=== PATIENT | male | born 1955 | race Caucasian/White ===

== ENCOUNTER 2021-12-14 16:18 | Outpatient (REF) | payer BC, SELFPAY ==
--- NOTE | ~2021-12-14 | XR_ITS ---
EXAMINATION: XR CHEST CLINICAL INFORMATION: R05.9 - Cough, unspecified COMPARISON: Chest radiographs 03/14/2018, 06/29/2009 TECHNIQUE: 2 views of the chest were obtained. FINDINGS: The lungs are clear and there is no airspace consolidation or groundglass opacity or effusion. There is old small calcified granuloma overlying mid right upper zone similar to prior studies. The heart is normal in size. The vascularity is normal. The costophrenic sulci are clear. The hilar and mediastinal contours and visualized bony structures are unremarkable. XR/XR chest 2V IMPRESSION: Unremarkable examination.
[2021-12-14 17:34] LABS: Hematocrit 43.1 % (42.0-52.0); Hemoglobin 14.9 g/dl (14.0-18.0); Mean Corpuscular HGB Conc 34.6 g/dl (31.0-36.0); Mean Corpuscular Hemoglobin 32.9 pg (27.0-33.0); Mean Corpuscular Volume 95.1 fL (80.0-98.0); Mean Platelet Volume 9.2 fL (9.4-12.4); Platelet Count 221 X10*3/uL (160-400); Red Blood Count 4.53 X10*6/uL (4.60-5.80); Red Cell Distribution Width 12.2 % (11.0-16.0); White Blood Count 6.4 X10*3/uL (4.8-10.8)
[2021-12-14 17:52] LABS: Alanine Aminotransferase 72 U/L (0-40); Albumin Level 4.4 g/dL (3.5-5.0); Alkaline Phosphatase 43 U/L (39-117); Anion Gap 12 (12-20); Aspartate Amino Transferase 48 U/L (5-37); Bilirubin Total 1.3 mg/dL (0.0-1.0); Blood Urea Nitrogen 14 mg/dL (9-16); Calcium 9.4 mg/dL (8.4-10.2); Carbon Dioxide 28 mmol/L (22-29); Chloride 103 mmol/L (96-108); Estimated Glomerular Filt Rate > 60; Glucose Random 88 mg/dL (60-115); Potassium 4.2 mmol/L (3.3-5.1); Sodium 139 mmol/L (135-145); Total Protein 7.4 g/dL (6.5-8.0)
[2021-12-14 18:13] LABS: TSH reflex Free T4 2.34 uIU/mL (0.32-4.0)
== END 2021-12-14 16:19 | disposition home or self-care (01) ==
LOC: HO.XRAY 16:18
PROVIDERS: PCP Internal Medicine; Visit Provider Nurse Practitioner Family
DX: Z13.29 Encounter for screening for other suspected endocrine disorder (principal); R05.9 Cough, unspecified
CPT/HCPCS: 36415; 71046; 80053; 84443; 85027

== ENCOUNTER 2022-02-05 07:42 | Outpatient (REF) | payer BC, SELFPAY ==
--- NOTE | ~2022-02-05 | US_ITS ---
EXAMINATION: US ABDOMEN COMPLETE CLINICAL INFORMATION: Elevated LFTs. COMPARISON: None. TECHNIQUE: Real-time imaging of the abdominal viscera. FINDINGS: PANCREAS: Visualized body and the head of the pancreas is homogeneous. The talus not well visualized. ABDOMINAL AORTA: The proximal, mid, and distal segments are normal in caliber. INFERIOR VENA CAVA: IVC is not seen. LIVER: The liver is enlarged measuring 17.7 cm in length. The liver contour is normal. There is diffuse increased liver echogenicity. No focal lesion seen. There is no intrahepatic biliary duct dilatation seen. GALLBLADDER: The gallbladder has folds, likely simulating small polyps. The gallbladder is physiologically distended without evidence of stones, sludge, wall thickening or pericholecystic fluid. COMMON BILE DUCT: Normal in caliber measuring 0.5 cm in diameter. RIGHT KIDNEY: Normal. No hydronephrosis. No renal calculi or focal parenchymal lesions. The kidney measures 12.0 cm in maximum dimension. LEFT KIDNEY: Normal. No hydronephrosis. No renal calculi or focal parenchymal lesions. The kidney measures 12.9 cm in maximum dimension. SPLEEN: The spleen is enlarged. The spleen measures 14.6 cm in maximum dimension. FREE FLUID: None. US/US abdomen complete IMPRESSION: Mild hepatomegaly with hepatic steatosis. No focal lesion. Numerous gallbladder folds simulating polyps. Mild splenomegaly.
== END 2022-02-05 07:43 | disposition home or self-care (01) ==
LOC: HO.US 07:42
PROVIDERS: Visit Provider Nurse Practitioner Family
DX: R79.89 Other specified abnormal findings of blood chemistry (principal)
CPT/HCPCS: 76700

== ENCOUNTER 2022-02-06 15:54 | Outpatient (REF) | payer BC, SELFPAY ==
--- NOTE | 2022-02-06 17:37 | PFT_ITS ---
FLOWS: FEV1 85% of predicted at 3.30 L. FVC 81% of predicted at 4.25 L. FEV1 to FVC ratio of 0.78. No bronchodilator response. LUNG VOLUMES: Total lung capacity 88% of predicted at 6.93 L. Residual volume 99% of predicted at 2.62 L. Slow vital capacity 82% of predicted at 4.30 L. Expiratory reserve volume 27% of predicted at 0.43 L. Diffusion capacity is mildly decreased, diffusion capacity corrects to normal after adjustment for alveolar ventilation. IMPRESSION: No obstructive or restrictive ventilatory defect. No bronchodilator response. Decreased expiratory reserve volume suggests extrathoracic restriction, likely secondary to abdominal obesity. Prashanth Freeman MD AP/MODL / [id number]
== END 2022-02-06 15:55 | disposition home or self-care (01) ==
LOC: HO.RESP 15:54
PROVIDERS: PCP Internal Medicine; Visit Provider Nurse Practitioner Family
DX: R05.9 Cough, unspecified (principal); R06.02 Shortness of breath
CPT/HCPCS: 94060; 94727; 94729

== ENCOUNTER → 2022-03-02 09:22 | Outpatient (REF) | payer BC, SELFPAY ==
--- NOTE | 2022-03-02 09:26 | CA_ITS ---
Transthoracic Echocardiogram Patient (Last, First, Middle): Jah Irwin P Gender: Male Date of : 1955 Age: 66 Procedure Date: 03/02/2022 Procedure Type: Transthoracic Echocardiogram Location: OP Height: 187.96 cm Weight: 111.13 kg BSA: 2.37 m2 Heart Rate: bpm BP: 125 / 72 mmHg Treating Plant Supervisor: VH/TO Referring MD: Addie STALLWORTH [place] Tender: Steve Mullen MD Symptoms: R05.9 - Cough, unspecified Study Quality: Fair/Contrast ECG Rhythm: Sinus Conclusions: - 1. Normal LV systolic function with grade 1 diastolic dysfunction with possible regional wall motion abnormality in the RCA territory 2. Trivial aortic regurgitation 3. Mildly dilated ascending aorta at 4 cm 4. Normal RV systolic pressure 5. No gross pericardial effusion Findings Procedure Information Contrast agent, definity, is being given per protocol without apparent complications. Left Ventricle The visually estimated ejection fraction is between 60-65%. Spectral Doppler is indicative of an impaired relaxation filling pattern. E/E prime ratio is <8, consistent with normal filling pressures. Evidence suggests grade I (mild) diastolic dysfunction. Wall Motion Rest Echo Findings The inferoseptal wall, the basal inferior, and mid anteroseptal segments are hypokinetic. All other scored wall segments showed normal motion. Right Ventricle Normal right ventricular cavity size and systolic function. Atria The left atrium is likely dilated. There is lipomatous hypertrophy of the interatrial septum. There is no evidence of interatrial shunt. The right atrium is normal in size. Aortic Valve There is mild calcification of the aortic valve. There is no aortic valve stenosis. There is trace (trivial) aortic valve regurgitation. Mitral Valve There is mild anterior and posterior mitral leaflet thickening. There is trace mitral valve regurgitation. There is no mitral valve stenosis. Pulmonic Valve The pulmonic valve was not well visualized. Tricuspid Valve Likely normal tricuspid valve structure and function. There is trace tricuspid valve regurgitation. The right ventricular systolic pressure is normal. The right ventricular systolic pressure is 13 mmHg. Normal right atrial pressure. There is no evidence of pulmonary hypertension. Great Vessels The pulmonary artery was not well visualized. There is mild dilatation of the ascending aorta measuring 4.00 cm. Small plaque is seen in the ascending aorta. Venous The inferior vena cava is normal in size and collapses greater than 50% with inspiration. Pericardium/Pleural There is no evidence of pericardial effusion. Prior Study Comparison No prior study available for comparison. Measurements 2D Linear Measurements IVSd: 1.16 0.6-0.9/0.6-1.0 cm LVIDd: 5.58 3.9-5.3/4.2-5.9 cm LVIDd Index: 2.35 2.4-3.2/2.2-3.1 cm/m2 LVIDs: 3.86 2.0-3.6 cm LVPWd: 1.09 0.7-1.1 cm LA Diam: 3.90 2.7-3.8/3.0-4.0 cm LAIDs Index: 1.65 1.5-2.3 cm/m2 LV Mass: 318.56 67-162/88-224 g LV Mass Index: 134.41 43-95/49-115 g/m2 LVOT Diam: 2.30 3.0+(-)1.3 cm 2D Systolic Function EF 4C: 60.20 >55% EF 2C: 62.70 >55% EF BiP: 61.80 >55% Mitral Valve MV Pk E: 0.61 MV PK A: 0.77 MV Decel Time: 192.00 E/A: 0.80 E'Lateral: 6.64 E'Medial: 6.64 E/E' Med: 9.20 E/E' Lat: 9.20 PHT: 56.00 MVA PHT: 3.93 Decel [place]: 3.19 Aortic Valve AoV Pk Bunny: 1.25 AoV Mn Bunny: 0.84 AoV VTI: 0.27 AoV Pk Grad: 6.00 Aov Mn Grad: 3.00 AI Pk Bunny: 3.95 AI [place]: 1.91 LVOT LVOT Diam: 2.30 LVOT Area: 4.15 Diastolic Function MV Pk E: 0.61 MV Pk A: 0.77 E/A: 0.80 E'Medial: 6.64 E/E' Med: 9.20 E' Laterial: 6.64 E/E' Lat: 9.20 Right Ventricle TAPSE (mm): 17.00 TVS' Bunny: 11.10 Tricuspid Valve TR Pk Bunny: 1.59 TR Pk Grad: 10.00 RA Press: 3.00 RVSP: 13.00 Great Vessels Aorta Sinus of Valsalva: 4.24 2.0-3.[address] [place]: 3.26 1.7-3.4 cm Ao Asc: 4.00 2.1-3.4 cm Ao Arch: 3.70 Updated in Other Vendor System with Status of Final Steve Mullen MD electronically signed on 03/02/2022 1:43:19 PM with status of Final
== END ==
LOC: HO.CARD 09:22
PROVIDERS: PCP Internal Medicine; Visit Provider Nurse Practitioner Family
DX: R05.9 Cough, unspecified (principal)
CPT/HCPCS: 93306; Q9957

== ENCOUNTER 2022-05-04 05:59 | Outpatient (REF) | payer BC, SELFPAY ==
[2022-05-04 06:06] LABS: MANUAL DIFF FLAG NO
[2022-05-04 08:09] LABS: Basophils Percent Auto 0.6 % (0-2); Eosinophils Absolute Auto 0.2 X10*3/uL (0.0-0.4); Eosinophils Percent Auto 4.3 % (0-4); Hematocrit 43.2 % (42.0-52.0); Hemoglobin 15.2 g/dl (14.0-18.0); Imm Gran Abs Auto 0.01 X10*3/uL (0.00-0.03); Imm Gran Pct Auto 0.2 % (0.0-0.4); Lymphocytes Absolute Auto 1.6 X10*3/uL (1.2-4.9); Mean Corpuscular HGB Conc 35.2 g/dl (31.0-36.0); Mean Corpuscular Hemoglobin 33.2 pg (27.0-33.0); Mean Corpuscular Volume 94.3 fL (80.0-98.0); Mean Platelet Volume 9.7 fL (9.4-12.4); Monocytes Absolute Auto 0.4 X10*3/uL (0.1-1.2); Monocytes Percent Auto 8.3 % (2-11); Neutrophils Absolute Auto 2.5 x10*3/uL (2.0-8.3); Neutrophils Percent Auto 53.6 % (45-73); Platelet Count 198 X10*3/uL (160-400); Red Blood Count 4.58 X10*6/uL (4.60-5.80); White Blood Count 4.7 X10*3/uL (4.8-10.8)
[2022-05-04 08:44] LABS: Estimated Average Glucose 114 mg/dL; Hemoglobin A1C 148.6015 umol/L; Hemoglobin A1c % 5.6 %
[2022-05-04 08:53] LABS: Alanine Aminotransferase 50 U/L (0-40); Albumin Level 4.5 g/dL (3.5-5.0); Alkaline Phosphatase 39 U/L (39-117); Anion Gap 14 (12-20); Aspartate Amino Transferase 40 U/L (5-37); Bilirubin Total 2.3 mg/dL (0.0-1.0); Blood Urea Nitrogen 17 mg/dL (9-16); Calcium 8.7 mg/dL (8.4-10.2); Carbon Dioxide 26 mmol/L (22-29); Chloride 104 mmol/L (96-108); Cholesterol 195 mg/dL; Estimated Glomerular Filt Rate > 60; Glucose Fasting 126 mg/dL (60-99); HDL Cholesterol 31 mg/dL; LDL Cholesterol Calculated 137 mg/dl; Potassium 3.9 mmol/L (3.3-5.1); Sodium 140 mmol/L (135-145); Total Protein 7.1 g/dL (6.5-8.0); Triglycerides 138 mg/dL
[2022-05-04 09:12] LABS: Appearance Urine CLEAR; Color Urine YELLOW; Glucose Urine UA NEG (NEG); Leukocyte Esterase Urine NEG (NEG); Nitrite Urine NEG (NEG); PH 5.5 (5.0-8.0); Specific Gravity - Urine >= 1.030 (1.005-1.025); Urine Blood NEG (NEG); Urine Ketones NEG (NEG); Urine Protein NEG (NEG-TRACE)
[2022-05-04 09:14] LABS: TSH reflex Free T4 2.13 uIU/mL (0.32-4.0); Vitamin D 25-OH Total 22.9 ng/mL (>30)
== END 2022-05-04 06:00 | disposition home or self-care (01) ==
LOC: HO.LAB 05:59
PROVIDERS: Absent Provider Nurse Practitioner Family; PCP Internal Medicine; Visit Provider Internal Medicine
DX: R73.01 Impaired fasting glucose (principal); I10 Essential (primary) hypertension; E55.9 Vitamin D deficiency, unspecified; E78.00 Pure hypercholesterolemia, unspecified
CPT/HCPCS: 36415; 80053; 80061; 81003; 82306; 83036; 84443; 85025

== ENCOUNTER → 2022-05-22 14:48 | Outpatient (BNVA) | payer MEDICARE, SELFPAY | PROVIDERS: PCP Internal Medicine; Referring Provider Internal Medicine; Visit Provider Internal Medicine Cardiovascular Disease | DX: I20.9 Angina pectoris, unspecified (principal) | CPT/HCPCS: 93005; 99202 ==

== ENCOUNTER → 2022-06-01 07:42 | Outpatient (REF) | payer MEDICARE, SELFPAY ==
--- NOTE | ~2022-06-01 | NM_ITS ---
EXERCISE MYOCARDIAL PERFUSION STUDY INDICATION: Abnormal echocardiogram with wall motion abnormality. Hence referred for ischemia evaluation. TECHNIQUE: The patient was brought in for an exercise perfusion study on 06/01/2022. Patient performed exercise as per Jignesh protocol and was injected 30 mCi of sestamibi once target heart rate was achieved. Images were obtained using the SPECT gamma camera interlaced with the gating device. Images were obtained in supine position. Resting perfusion study was performed on 06/04/2022. Patient was administered 30 mCi of sestamibi intravenously at rest. Images were then obtained in supine position. Total DLP 95mGy-cm. Images were processed with the software and compared side to side in short axis, horizontal long axis and vertical long axis views. FINDINGS: Raw images were reviewed. The stress perfusion study showed diminished tracer uptake along the inferior wall. There is improved uptake suggestive of diaphragmatic attenuation artifact. The gated study shows low normal LV systolic function with calculated LVEF of 52%. LV cavity is normal in size. The gated study shows inferior hypokinesis. Resting study shows mildly diminished tracer uptake along the inferior wall. There is improvement with CT attenuation correction and hence suggestive of diaphragmatic attenuation artifact. Gating at rest reveals normal wall motion with ejection fraction at 47%. The findings are consistent with mild reversible inferior defect but with improvement during CT attenuation correction. DE/DE cardiolite stress test IMPRESSION: 1. Myocardial perfusion imaging study shows ischemia versus diaphragmatic attenuation artifact along inferior wall. There is improvement with CT attenuation correction suggestive of diaphragmatic attenuation, but there is also evidence of wall motion abnormality on the echocardiogram. Hence consider further workup as indicated. 2. Gated LVEF is 52% during stress and 47% during rest. 3. Transient ischemic dilatation ratio 1.24. EKG component of the test reported separately.
--- NOTE | 2022-06-01 07:45 | CA_ITS ---
Acquisition Time: 2022-06-01 07:57:14 Total Exercise Time: 00:05:46 Test Indications: Chest Pain ABN ECHO Medications: BENZONATATE CETERIZINE OMEPRAZOLE Protocol: CYDNEY Max HR: 133 BPM 87% of Pred: 152 BPM Max BP: 158/076 mmHG Max Work Load: 7.0 METS Exercise stress test with exercise 5 min 46 sec of Cydney protocol, with moderate sob and 4/10 mid chest tightness, with isolated PACs and PVCs, with normotensive response to exercise, with borderline EKG changes suggestive of ischemia: bordeline ST depressions with ST elevation in aVL, then in recovery there is slight downsloping STs inferiolateral leads. In recovery her chest tightness gradually improved and resolved. Nuclear iamges pending. Test reviewed with Dr Warren Referred By: Steve Mullen Overread By: OBED CHICAS
== END ==
LOC: HO.CARD 07:42
PROVIDERS: PCP Internal Medicine; Visit Provider Internal Medicine Cardiovascular Disease
DX: R07.9 Chest pain, unspecified (principal); I20.9 Angina pectoris, unspecified
CPT/HCPCS: 78452; 93017; A9500

== ENCOUNTER 2022-06-06 13:40 | Outpatient (REF) | payer MEDICARE, SELFPAY ==
[2022-06-06 15:32] LABS: Hematocrit 40.8 % (42.0-52.0); Hemoglobin 14.6 g/dl (14.0-18.0); Mean Corpuscular HGB Conc 35.8 g/dl (31.0-36.0); Mean Corpuscular Hemoglobin 33.6 pg (27.0-33.0); Mean Platelet Volume 9.2 fL (9.4-12.4); Platelet Count 203 X10*3/uL (160-400); Red Blood Count 4.34 X10*6/uL (4.60-5.80); Red Cell Distribution Width 12.3 % (11.0-16.0); White Blood Count 5.4 X10*3/uL (4.8-10.8)
[2022-06-06 15:35] LABS: INTERNATIONAL NORM RATIO 1.1 (0.9-1.1); Prothrombin Time 12.6 SEC (10.0-13.1)
[2022-06-06 15:57] LABS: Anion Gap 14 (12-20); Blood Urea Nitrogen 15 mg/dL (9-16); Calcium 8.8 mg/dL (8.4-10.2); Carbon Dioxide 25 mmol/L (22-29); Chloride 106 mmol/L (96-108); Estimated Glomerular Filt Rate > 60; Glucose Random 100 mg/dL (60-115); Potassium 3.9 mmol/L (3.3-5.1); Sodium 141 mmol/L (135-145)
[2022-06-07 05:19] LABS: HBS Num1 1.17 mIU/mL (0-7.99); HBsAGNum1 0.22 S/CO (0.00-0.99); Hepatitis B Core Antibody Nonreactive (Nonreactive); Hepatitis B Surface Antigen Negative (Negative); ~HepC Num1 0.06 S/CO (0.00-0.79); ~Hepatitis B Surface Antibody NONREACTIVE (Nonreactive); ~Hepatitis C Antibody Nonreactive (Nonreactive)
[2022-06-08 07:59] LABS: Hepatitis A Antibody IgM 0.15 Index (0-0.79); ~Hepatitis A Antibody IgM Nonreactive (Nonreactive)
== END 2022-06-06 13:41 | disposition home or self-care (01) ==
LOC: HO.LAB 13:40
PROVIDERS: Nurse Practitioner Family; PCP Internal Medicine; Referring Provider Internal Medicine; Visit Provider Internal Medicine Cardiovascular Disease
DX: I20.9 Angina pectoris, unspecified (principal); R79.89 Other specified abnormal findings of blood chemistry
CPT/HCPCS: 36415; 80048; 85027; 85610; 86704; 86706; 86709; 86803; 87340; 99212

== ENCOUNTER → 2022-07-11 13:24 | Outpatient (BNVA) | payer MEDICARE, SELFPAY | PROVIDERS: PCP Internal Medicine; Referring Provider Internal Medicine; Visit Provider Internal Medicine Cardiovascular Disease | DX: I25.10 Atherosclerotic heart disease of native coronary artery without angina pectoris (principal); R07.89 Other chest pain; E78.00 Pure hypercholesterolemia, unspecified; Z79.82 Long term (current) use of aspirin; Z79.899 Other long term (current) drug therapy | CPT/HCPCS: 99212 ==

== ENCOUNTER 2022-11-26 06:16 | Outpatient (REF) | payer MEDICARE, SELFPAY ==
[2022-11-26 06:26] LABS: MANUAL DIFF FLAG NO
[2022-11-26 07:43] LABS: Basophils Absolute Auto 0.1 X10*3/uL (0.0-0.2); Basophils Percent Auto 0.9 % (0-2); Eosinophils Absolute Auto 0.4 X10*3/uL (0.0-0.4); Eosinophils Percent Auto 5.6 % (0-4); Imm Gran Abs Auto 0.03 X10*3/uL (0.00-0.03); Imm Gran Pct Auto 0.5 % (0.0-0.4); Lymphocytes Absolute Auto 2.1 X10*3/uL (1.2-4.9); Lymphocytes Percent Auto 31.4 % (20-40); Mean Corpuscular HGB Conc 34.1 g/dl (31.0-36.0); Mean Corpuscular Hemoglobin 32.9 pg (27.0-33.0); Mean Corpuscular Volume 96.5 fL (80.0-98.0); Mean Platelet Volume 9.3 fL (9.4-12.4); Monocytes Absolute Auto 0.5 X10*3/uL (0.1-1.2); Monocytes Percent Auto 8.1 % (2-11); Neutrophils Absolute Auto 3.5 x10*3/uL (2.0-8.3); Neutrophils Percent Auto 53.5 % (45-73); Platelet Count 214 X10*3/uL (160-400); Red Blood Count 4.56 X10*6/uL (4.60-5.80); White Blood Count 6.6 X10*3/uL (4.8-10.8)
[2022-11-26 08:19] LABS: Appearance Urine Clear; Color Urine Yellow; Glucose Urine UA Negative (Negative); Leukocyte Esterase Urine Negative (Negative); Nitrite Urine Negative (Negative); PH 5.5 (5.0-9.0); Urine Blood Negative (Negative); Urine Ketones Negative (Negative); Urine Protein Negative (Neg-Trace)
[2022-11-26 08:20] LABS: Alanine Aminotransferase 39 U/L (0-40); Albumin Level 4.2 g/dL (3.5-5.0); Alkaline Phosphatase 39 U/L (39-117); Anion Gap 14 (12-20); Aspartate Amino Transferase 28 U/L (5-37); Bilirubin Total 1.8 mg/dL (0.0-1.0); Blood Urea Nitrogen 17 mg/dL (9-16); Calcium 9.2 mg/dL (8.4-10.2); Carbon Dioxide 29 mmol/L (22-29); Chloride 104 mmol/L (96-108); Cholesterol 122 mg/dL; Estimated Glomerular Filt Rate > 60; Glucose Fasting 129 mg/dL (60-99); HDL Cholesterol 30 mg/dL; LDL Cholesterol Calculated 62 mg/dl; Potassium 4.6 mmol/L (3.3-5.1); Sodium 142 mmol/L (135-145); Total Protein 6.8 g/dL (6.5-8.0); Triglycerides 150 mg/dL
[2022-11-26 08:35] LABS: TSH reflex Free T4 3.89 uIU/mL (0.32-4.0); Vitamin D 25-OH Total 29.1 ng/mL (>30)
[2022-11-30 18:44] LABS: Testosterone, Free 49.3 pg/mL (35.0-155.0); Testosterone, Total 360 ng/dL (250-1100)
== END 2022-11-26 06:17 | disposition home or self-care (01) ==
LOC: HO.LAB 06:16
PROVIDERS: PCP Internal Medicine; Visit Provider Internal Medicine
DX: R30.0 Dysuria (principal); E55.9 Vitamin D deficiency, unspecified; N52.9 Male erectile dysfunction, unspecified; R53.83 Other fatigue; I10 Essential (primary) hypertension; E78.00 Pure hypercholesterolemia, unspecified
CPT/HCPCS: 36415; 80053; 80061; 81003; 82306; 84402; 84403; 84443; 85025

== ENCOUNTER 2023-04-30 15:14 | Outpatient (AMB) | payer MEDICARE, SELFPAY ==
[2023-04-30 15:21] VITALS: BP 142/84; PULSE 70; O2SAT 96; BMI 31.1
--- NOTE | 2023-04-30 15:21 | A.OFFPC_ITS ---
Vital Signs 04/30/23 15:21 Height 6 ft 2 in Weight 242 lb 6 oz BMI 31.1 BP 142/84 H Blood Pressure Location Lt brachial Position Sitting Pulse 70 Pulse Source Pulse Oximeter Pulse Oximetry (%) 96 Oxygen Delivery Method Room Air Intake Visit Reasons: hyperlipidemia, HTN Janitorial Manager Required: No Accompanied by: Self / Same As Patient Allergies trazodone Adverse Reaction (Intermediate, Verified 09/02/23 15:58) nightmares Medication List - Last Reconciled 04/30/23 by Germán Bradford MD albuterol sulfate 90 mcg/actuation 2 puffs inhalation Q6H PRN amlodipine 2.5 mg PO BID 90 days aspirin 81 mg PO DAILY atorvastatin 40 mg PO DAILY cetirizine 10 mg PO DAILY omeprazole 20 mg PO DAILY sildenafil 50 mg PO DAILY PRN 30 days tamsulosin 0.4 mg PO BEDTIME 90 days trazodone 50 mg PO BEDTIME PRN 90 days triamcinolone acetonide 0.1% 1 appl topical BID PRN Tobacco use date assessed: 04/30/23 Fall risk assessment: No Falls in past year Last assessed Fall Risk: 04/30/23 Dental Screening Dental Screen Date: 04/30/23 Did you have a dental visit in the last 12 months?: Yes Did you have a dental problem in the last 6 months where you did not have access to dental care?: No Was dental information given to patient?: Patient has dentist HPI hyperlipidemia, HTN HPI Details Patient comes in today for his follow up visit States that he has been experiencing recurrent cough and chest congestion ever since he came down with a bad cold about a month ago States that his cough seems to be worse in the morning and his chest feels congested often - has been using his Albuterol inhaler at times lately with temporary relief Relates that he coughs up thick yellowish to whitish phlegm at times States that he feels okay otherwise and denies any fever or sore throat Denies any headaches or dizziness Denies any chest pains, no increased SOB No nausea/vomiting, no abdominal pain No change in bowel habits noted Was not able to get his follow up labs done prior to his appointment today; states that he will try to get them done sometime in the next few days [facility] Medical History Impaired fasting glucose Obesity (BMI 30-39.9) Pure hypercholesterolemia GERD without esophagitis Insomnia Hyperlipidemia Surgical History S/P cardiac catheterization (~06/26/22) History of neck surgery History of colonoscopy History of thumb surgery History of left knee surgery Family History Father Colon cancer Mother Heart failure Brother Lung cancer Prostate cancer Brother Stroke Brother In good health Daughter In good health Housing: Apartment Alcohol intake: former Patient Tobacco Use Status: Former Tobacco user Tobacco use type: Cigarette Years Smoked: stopped 23 years ago e-Cigarette/Vaping Use: Never Used service: No Current occupational status: employed Cognitive needs: No Hearing needs: No Vision needs: Yes Questionnaire PHQ-9 Over the last 2 weeks, how often have you been bothered by any of the following problems? 1. Little interest or pleasure in doing things: not at all 2. Feeling down, depressed, or hopeless: not at all 3. Trouble falling or staying asleep, or sleeping too much: not at all 4. Feeling tired or having little energy: not at all 5. Poor appetite or overeating: not at all 6. Feeling bad about yourself - or that you are a failure or have let yourself or your family down: not at all 7. Trouble concentrating on things, such as reading the newspaper or watching television: not at all 8. Moving or speaking so slowly that other people could have noticed. Or the opposite - being so fidgety or restless that you have been moving around a lot more than usual: not at all 9. Thoughts that you would be better off or of hurting yourself in some way: not at all Total score: 0 Depression Screening Interpretation: Negative 49148 - PHQ-9 Billing: Yes Source: Developed by Drs. Erickson Mathew, Fannie Solorzano, Rusty Turner and colleagues, with an educational rachel from [employer]. Thrive Questionnaire Date Thrive assessed: 04/30/23 I am a: Patient What is your living situation today?: I have a steady place to live Within the past 12 months, did the food you bought not last and you didn't have the money to get more?: Never true Within the past 12 months, did you worry whether your food would run out before you got money to buy more?: Never true Do you have trouble paying for medicines?: No Do you have trouble getting transportation to medical appointments?: No Do you have trouble paying your heating and electricity bill?: No Do you have trouble taking care of your child, family member or friend?: No Do you have trouble with day-to-day activities such as bathing, preparing meals, shopping, managing finances, etc.?: No Are you currently unemployed and looking for a job?: No Are you interested in more education?: No Please select the resources that you would like help with: None Currently or been in a relationship where the following occur: no concerns reported AUDIT C Alcohol Use Questionnaire (AUDIT-C) 1. How often do you have a drink containing alcohol?: Never 3. How often do you have six or more drinks on one occasion?: Never Total Score: 0 Score Reviewed/Action Taken: Yes ARIAN-7 AMB Questionnaire ARIAN-7 Date ARIAN - 7 assessed: 04/30/23 Feeling nervous, anxious, or on edge: 0 = Not at all Not being able to stop or control worryin = Not at all Worrying too much about different things: 0 = Not at all Trouble relaxin = Not at all Being so restless that it is hard to sit still: 0 = Not at all Becoming easily annoyed or irritable: 0 = Not at all Feeling afraid as if something awful might happen: 0 = Not at all Total ARIAN-7 score (0-4 normal; 5-9 mild; 10-14 moderate; 15-21 severe): 0 Source: Developed by Drs. Erickson Mathew, Fannie Solorzano, Rusty Turner and colleagues, with an educational rachel from [employer]. Review of Systems Const Denies chills, Reports difficulty sleeping (on and off), Denies fever(s) and Denies headache(s) ENT Denies dysphagia, Denies dizziness, Denies otalgia, Denies headache(s), Reports nasal congestion, Denies neck pain, Denies odynophagia and Denies sore throat Card Denies chest pain, Denies palpitations and Denies dyspnea Resp Reports chest congestion, Reports cough (recurrent; coughs up whitish to yellowish phlegm at times), Denies dyspnea and Denies wheezing GI Denies abdominal pain, Denies constipation, Denies dysphagia, Denies heartburn, Denies diarrhea, Denies nausea, Denies odynophagia and Denies vomiting Reports erectile dysfunction, Denies dysuria, Reports nocturia (see HPI) and Denies urinary incontinence Musc Denies back pain and Denies neck pain Skin/Breast Denies rash Neuro Denies dizziness and Denies headache(s) Endo Denies palpitations Aller/Immun Denies wheezing Physical exam (Primary Care) Vital Signs: Last Vital Signs Pulse 70 04/30/23 15:21 BP 142/84 H 04/30/23 15:21 Pulse Ox 96 04/30/23 15:21 Oxygen Delivery Method Room Air 04/30/23 15:21 BMI result Body Mass Index 31.1 Tobacco/Smoking Status: Tobacco use Status Tobacco use date assessed 04/30/23 04/30/23 15:26 Patient Tobacco Use Status Former Tobacco user 04/30/23 15:26 Tobacco use type Cigarette 04/30/23 15:26 e-Cigarette/Vaping Use Never Used 04/30/23 15:26 PHQ-9: PHQ-9 Score PHQ-9: Total score 0 04/30/23 16:25 Depression Screening Interpretation: Negative Thrive Assessment: Date of Thrive Assessment Date Thrive assessed 04/30/23 04/30/23 15:26 Currently or been in a relationship where the following occur: no concerns reported Const General: no acute distress and alert HENMT Ears: TM's normal bilaterally and EAC's normal Throat: Yes posterior oropharynx normal and Yes tonsils normal (no TP congestion) Neck Neck: Yes no lymphadenopathy and Yes supple Resp Auscultation: no crackles, no rales, rhonchi (scattered) throughout and no wheezes Cardio Rate: regular rate Rhythm: regular rhythm Heart sounds: no murmurs GI Palpation (GI): Soft to palpation and nontender Auscultation: normal bowel sounds Back/Spine/Pelvis Thoracic/Lumbar Spine: No lumbar spinal tenderness Skin Rashes: no rashes Extrem General: Yes no clubbing, cyanosis or edema Assessment and Plan Assessment & Plan (1) Mixed hyperlipidemia: Code(s): E78.2 - Mixed hyperlipidemia Plan: Patient was not able to get his follow up labs done prior to his visit today; states that he will try to get them done as soon as he can sometime in the next few days Reinforced low cholesterol diet Will have him recheck his labs and fasting lipids again in 4 months for follow- up (2) Elevated LFTs: Code(s): R79.89 - Other specified abnormal findings of blood chemistry Plan: Improved on his previous labs - was most likely due to hepatosteatosis Abdominal US done a few months ago revealed (+) mild hepatomegaly and mild splenomegaly; hepatitis screen came back negative Will continue to monitor his LFTs regularly (3) GERD without esophagitis: Code(s): K21.9 - Gastro-esophageal reflux disease without esophagitis Plan: Dietary restrictions reinforced Continue Omeprazole 20 mg QD (4) Impaired fasting glucose: Code(s): R73.01 - Impaired fasting glucose Plan: FBS has been elevated in the past and was still elevated on his previous labs at 129 mg/dl; HgbA1c was normal at 5.6% when checked a few months ago Reinforced low calorie diet Will continue to monitor this closely (5) Erectile dysfunction: Code(s): N52.9 - Male erectile dysfunction, unspecified Qualifiers: Erectile dysfunction type: unspecified Qualified Code(s): N52.9 - Male erectile dysfunction, unspecified Plan: Serum testosterone level came out normal on his recent labs Continue Sildenafil 50 mg QD PRN (6) Bronchitis: Code(s): J40 - Bronchitis, not specified as acute or chronic Plan: Will start him on Augmentin 875 mg BID x 10 days He is advised that he can continue using his Albuterol inhaler PRN for now until his respiratory symptoms have completely resolved (7) Fatigue: Code(s): R53.83 - Other fatigue Qualifiers: Fatigue type: unspecified Qualified Code(s): R53.83 - Other fatigue Plan: Advised that his fatigue is most likely related to his poor sleep quality as it keeps getting interrupted by his frequent trips to the bathroom at night and should improve with better control of his nocturia If this persists despite his other symptoms being controlled, will consider getting a sleep study for further evaluation (8) Benign prostatic hyperplasia with nocturia: Code(s): N40.1 - Benign prostatic hyperplasia with lower urinary tract symptoms; R35.1 - Nocturia Plan: Continue Tamsulosin 0.4 mg Q HS - states that Rx has helped with his symptoms somewhat Will check serum PSA TARUN for further evaluation (9) Insomnia: Code(s): G47.00 - Insomnia, unspecified Qualifiers: Insomnia type: unspecified Qualified Code(s): G47.00 - Insomnia, unspecified Plan: Sleep hygiene reinforced Continue Trazodone 50 mg Q HS PRN (10) Obesity (BMI 30-39.9): Code(s): E66.9 - Obesity, unspecified Plan: Reinforced diet/exercise as tolerated/lose weight Plan Follow up in 4 months Orders: Orders Lipid Panel 4 Months E78.00 - Pure hypercholesterolemia, unspecified Complete Blood Count Auto Diff 4 Months I10 - Essential (primary) hypertension Comprehensive [place]. Panel Fast 4 Months E78.00 - Pure hypercholesterolemia, unspecified Medications: New amoxicillin-pot clavulanate 875-125 mg 1 tab PO BID 20 tabs 0RF 10 days J45.909 - Unspecified asthma, uncomplicated Coding Level of Care Code Est Pt Level 4 (27251) Diagnoses Mixed hyperlipidemia E78.2 Elevated LFTs R79.89 GERD without esophagitis K21.9 Impaired fasting glucose R73.01 Erectile dysfunction, unspecified erectile dysfunction type N52.9 Erectile dysfunction type: unspecified Bronchitis J40 Fatigue, unspecified type R53.83 Fatigue type: unspecified Benign prostatic hyperplasia with nocturia N40.1; R35.1 Insomnia, unspecified type G47.00 Insomnia type: unspecified Obesity (BMI 30-39.9) E66.9
== END 2023-04-30 16:17 | disposition home or self-care (01) ==
PROVIDERS: PCP Internal Medicine; Visit Provider Internal Medicine
DX: E78.2 Mixed hyperlipidemia (principal); R79.89 Other specified abnormal findings of blood chemistry; K21.9 Gastro-esophageal reflux disease without esophagitis; R73.01 Impaired fasting glucose; N52.9 Male erectile dysfunction, unspecified; J40 Bronchitis, not specified as acute or chronic; R53.83 Other fatigue; Z68.31 Body mass index [BMI] 31.0-31.9, adult; N40.1 Benign prostatic hyperplasia with lower urinary tract symptoms; R35.1 Nocturia; G47.00 Insomnia, unspecified; E66.9 Obesity, unspecified
CPT/HCPCS: 99214

== ENCOUNTER 2023-07-08 06:02 | Outpatient (REF) | payer MEDICARE, SELFPAY ==
[2023-07-08 06:19] LABS: MANUAL DIFF FLAG NO
[2023-07-08 08:25] LABS: Basophils Percent Auto 0.7 % (0-2); Eosinophils Absolute Auto 0.4 X10*3/uL (0.0-0.4); Eosinophils Percent Auto 6.8 % (0-4); Hematocrit 41.3 % (42.0-52.0); Hemoglobin 14.1 g/dl (14.0-18.0); Imm Gran Abs Auto 0.01 X10*3/uL (0.00-0.03); Imm Gran Pct Auto 0.2 % (0.0-0.4); Lymphocytes Absolute Auto 1.9 X10*3/uL (1.2-4.9); Lymphocytes Percent Auto 34.7 % (20-40); Mean Corpuscular HGB Conc 34.1 g/dl (31.0-36.0); Mean Corpuscular Hemoglobin 32.6 pg (27.0-33.0); Mean Corpuscular Volume 95.4 fL (80.0-98.0); Mean Platelet Volume 9.7 fL (9.4-12.4); Monocytes Absolute Auto 0.4 X10*3/uL (0.1-1.2); Monocytes Percent Auto 7.2 % (2-11); Neutrophils Absolute Auto 2.7 x10*3/uL (2.0-8.3); Neutrophils Percent Auto 50.4 % (45-73); Platelet Count 203 X10*3/uL (160-400); Red Blood Count 4.33 X10*6/uL (4.60-5.80); Red Cell Distribution Width 11.9 % (11.0-16.0); White Blood Count 5.4 X10*3/uL (4.8-10.8)
[2023-07-08 08:36] LABS: Estimated Average Glucose 123 mg/dL; Hemoglobin A1c % 5.9 % (<6.0)
[2023-07-08 08:58] LABS: Alanine Aminotransferase 29 U/L (0-40); Albumin Level 4.2 g/dL (3.5-5.0); Alkaline Phosphatase 40 U/L (39-117); Anion Gap 14 (12-20); Aspartate Amino Transferase 23 U/L (5-37); Bilirubin Total 1.6 mg/dL (0.0-1.0); Blood Urea Nitrogen 12 mg/dL (9-16); Calcium 9.2 mg/dL (8.4-10.2); Carbon Dioxide 25 mmol/L (22-29); Chloride 106 mmol/L (96-108); Cholesterol 110 mg/dL (<200); Estimated Glomerular Filt Rate > 60; Glucose Fasting 117 mg/dL (60-99); HDL Cholesterol 28 mg/dL (>40); LDL Cholesterol Calculated 44 mg/dL (<100); Potassium 4.1 mmol/L (3.3-5.1); Sodium 141 mmol/L (135-145); TSH reflex Free T4 3.47 uIU/mL (0.32-4.0); Triglycerides 191 mg/dL (<150); Vitamin D 25-OH Total 48.6 ng/mL (>30)
[2023-07-08 09:00] LABS: Prostate Specific Antigen 0.33 ng/mL (<0.05-4.0)
[2023-07-08 10:24] LABS: Appearance Urine Clear; Color Urine Yellow; Glucose Urine UA Negative (Negative); Leukocyte Esterase Urine Negative (Negative); Nitrite Urine Negative (Negative); PH 5.5 (5.0-9.0); Specific Gravity - Urine 1.015 (1.005-1.025); Urine Blood Negative (Negative); Urine Ketones Negative (Negative); Urine Protein Negative (Neg-Trace)
== END 2023-07-08 06:03 | disposition home or self-care (01) ==
LOC: HO.LAB 06:02
PROVIDERS: PCP Internal Medicine; Visit Provider Internal Medicine
DX: I10 Essential (primary) hypertension (principal); E78.00 Pure hypercholesterolemia, unspecified; R73.01 Impaired fasting glucose; N40.1 Benign prostatic hyperplasia with lower urinary tract symptoms; R35.1 Nocturia; E55.9 Vitamin D deficiency, unspecified; R30.0 Dysuria; R53.83 Other fatigue; Z12.5 Encounter for screening for malignant neoplasm of prostate
CPT/HCPCS: 36415; 80053; 80061; 81003; 82306; 83036; 84153; 84443; 85025

== ENCOUNTER 2023-09-02 15:15 | Outpatient (AMB) | payer MEDICARE, SELFPAY ==
[2023-09-02 15:17] VITALS: BP 134/90; PULSE 71; O2SAT 95; BMI 32.1
--- NOTE | 2023-09-02 15:17 | A.OFFPC_ITS ---
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: No Accompanied by: Self / Same As Patient Allergies trazodone Adverse Reaction (Intermediate, Verified 05/05/24 15:07) nightmares Medication List - Last Reconciled 09/02/23 by Germán Bradford MD albuterol sulfate 90 mcg/actuation 2 puffs inhalation Q6H PRN amlodipine 2.5 mg PO BID 90 days amoxicillin-pot clavulanate 875-125 mg 1 tab PO BID 10 days aspirin 81 mg PO DAILY atorvastatin 40 mg PO DAILY cetirizine 10 mg PO DAILY omeprazole 20 mg PO DAILY sildenafil 50 mg PO DAILY PRN 30 days tamsulosin 0.4 mg PO BEDTIME 90 days trazodone 50 mg PO BEDTIME PRN 90 days triamcinolone acetonide 0.1% 1 appl topical BID PRN Tobacco use date assessed: 09/02/23 Fall risk assessment: No Falls in past year Last assessed Fall Risk: 09/02/23 Dental Screening Dental Screen Date: 09/02/23 Did you have a dental visit in the last 12 months?: Yes Did you have a dental problem in the last 6 months where you did not have access to dental care?: No Was dental information given to patient?: Patient has dentist HPI 4 sat f/ HPI Details Patient comes in today for his follow up visit States that he is still experiencing increased pain over his lower back - hurt his lower back initially in January 2023 States that his current medications help keep his lower back pain manageable He has also been experiencing some pain and discharge from his left ear for the past few days He denies any fever or sore throat Denies any headaches or dizziness Denies any chest pains, no shortness of breath No nausea/ vomiting, no abdominal pain No change in bowel habits noted Had his follow up labs done early last month - to discuss his results [facility] Medical History COPD (chronic obstructive pulmonary disease) Lumbar disc herniation with radiculopathy Impaired fasting glucose Obesity (BMI 30-39.9) Pure hypercholesterolemia GERD without esophagitis Insomnia Hyperlipidemia Surgical History Hx of decompressive lumbar laminectomy S/P cardiac catheterization (~06/26/22) History of neck surgery History of colonoscopy History of thumb surgery History of left knee surgery Family History Father Colon cancer Mother Heart failure Brother Lung cancer Prostate cancer Brother Stroke Brother In good health Daughter In good health Social History Housing: Apartment Alcohol intake: former Patient Tobacco Use Status: Former Tobacco user Tobacco use type: Cigarette Years Smoked: stopped 23 years ago e-Cigarette/Vaping Use: Never Used Second Hand Smoke Exposure: Yes service: No Current occupational status: employed Cognitive needs: No Hearing needs: No Vision needs: Yes (glasses) Questionnaire PHQ-9 Over the last 2 weeks, how often have you been bothered by any of the following problems? 1. Little interest or pleasure in doing things: not at all 2. Feeling down, depressed, or hopeless: not at all 3. Trouble falling or staying asleep, or sleeping too much: not at all 4. Feeling tired or having little energy: not at all 5. Poor appetite or overeating: not at all 6. Feeling bad about yourself - or that you are a failure or have let yourself or your family down: not at all 7. Trouble concentrating on things, such as reading the newspaper or watching television: not at all 8. Moving or speaking so slowly that other people could have noticed. Or the opposite - being so fidgety or restless that you have been moving around a lot more than usual: not at all 9. Thoughts that you would be better off or of hurting yourself in some way: not at all Total score: 0 Depression Screening Interpretation: Negative Depression Screening Done: Yes 61696 - PHQ-9 Billing: Yes Source: Developed by Drs. Erickson Mathew, Fannie Solorzano, Rusty Turner and colleagues, with an educational rachel from [employer]. Thrive Questionnaire Date Thrive assessed: 09/02/23 I am a: Patient What is your living situation today?: I have a steady place to live Within the past 12 months, did the food you bought not last and you didn't have the money to get more?: Never true Within the past 12 months, did you worry whether your food would run out before you got money to buy more?: Never true Do you have trouble paying for medicines?: No Do you have trouble getting transportation to medical appointments?: No Do you have trouble paying your heating and electricity bill?: No Do you have trouble taking care of your child, family member or friend?: No Do you have trouble with day-to-day activities such as bathing, preparing meals, shopping, managing finances, etc.?: No Are you currently unemployed and looking for a job?: No Are you interested in more education?: No Please select the resources that you would like help with: None Currently or been in a relationship where the following occur: no concerns reported AUDIT C Alcohol Use Questionnaire (AUDIT-C) 1. How often do you have a drink containing alcohol?: Never 3. How often do you have six or more drinks on one occasion?: Never Total Score: 0 Score Reviewed/Action Taken: Yes ARIAN-7 AMB Questionnaire ARIAN-7 Date ARIAN - 7 assessed: 09/02/23 Feeling nervous, anxious, or on edge: 0 = Not at all Not being able to stop or control worryin = Not at all Worrying too much about different things: 0 = Not at all Trouble relaxin = Not at all Being so restless that it is hard to sit still: 0 = Not at all Becoming easily annoyed or irritable: 0 = Not at all Feeling afraid as if something awful might happen: 0 = Not at all Total ARIAN-7 score (0-4 normal; 5-9 mild; 10-14 moderate; 15-21 severe): 0 Source: Developed by Drs. Erickson Mathew, Fannie Solorzano, Rusty Turner and colleagues, with an educational rachel from [employer]. Review of Systems Const Denies chills, Reports difficulty sleeping, Reports fatigue, Denies fever(s) and Denies headache(s) ENT Denies dysphagia, Denies dizziness, Reports ear discharge (from the left ear), Reports otalgia (left ear), Denies headache(s), Denies neck pain, Denies odynophagia and Denies sore throat Card Denies chest pain, Denies palpitations and Denies dyspnea Resp Denies cough, Denies dyspnea and Denies wheezing GI Denies abdominal pain, Denies constipation, Denies dysphagia, Denies heartburn, Denies diarrhea, Denies nausea, Denies odynophagia and Denies vomiting Reports erectile dysfunction, Denies dysuria, Denies urinary frequency and Denies urinary incontinence Musc Reports as per HPI, Reports back pain (over the lower back - chronic), Denies neck pain and Denies radiating pain into limb Skin/Breast Denies rash Neuro Denies dizziness and Denies headache(s) Endo Reports fatigue and Denies palpitations Aller/Immun Denies wheezing Physical exam (Primary Care) Vital Signs: Last Vital Signs Pulse 71 09/02/23 15:17 BP 134/90 H 09/02/23 15:17 Pulse Ox 95 09/02/23 15:17 Oxygen Delivery Method Room Air 09/02/23 15:17 BMI result Body Mass Index 32.1 Tobacco/Smoking Status: Tobacco use Status Tobacco use date assessed 09/02/23 09/02/23 15:19 Patient Tobacco Use Status Former Tobacco user 09/02/23 15:19 Tobacco use type Cigarette 09/02/23 15:19 e-Cigarette/Vaping Use Never Used 09/02/23 15:19 PHQ-9: PHQ-9 Score PHQ-9: Total score 0 09/02/23 16:02 Depression Screening Interpretation: Negative Thrive Assessment: Date of Thrive Assessment Date Thrive assessed 09/02/23 09/02/23 15:19 Currently or been in a relationship where the following occur: no concerns reported Const General: no acute distress and alert HENMT Ears: TM normal on the right, Abnormal EAC present otic discharge clear on the left and TM abnormal erythematous on the left Throat: Yes posterior oropharynx normal and Yes tonsils normal (no TP congestion) Neck Neck: Yes no lymphadenopathy and Yes supple Thyroid: Thyroid normal Resp Auscultation: clear to auscultation bilaterally, no rales and no wheezes Cardio Rate: regular rate Rhythm: regular rhythm Heart sounds: no murmurs GI Palpation (GI): Soft to palpation and nontender Auscultation: normal bowel sounds General: Yes no CVA tenderness Back/Spine/Pelvis Back: no CVA tenderness Thoracic/Lumbar Spine: lumbar spinal tenderness Skin Rashes: no rashes Extrem General: Yes no clubbing, cyanosis or edema Results Reviewed Results Reviewed: Laboratory Tests 07/08/23 07/08/23 07/08/23 06:17 06:17 08:45 WBC 5.4 Hgb 14.1 Hct 41.3 L Plt Count 203 Sodium 141 Potassium 4.1 Creatinine 1.06 Estimated GFR > 60 Fasting Glucose 117 H Hemoglobin A1c % 5.9 Calcium 9.2 AST 23 ALT 29 Triglycerides 191 H Cholesterol 110 LDL Cholesterol, Calc 44 HDL Cholesterol 28 L Prostate Specific Ag 0.33 25-OH Vitamin D Total 48.6 TSH 3.47 Urine pH 5.5 Ur Specific [place] 1.015 Urine Protein Negative Urine Glucose (UA) Negative Urine Blood Negative Assessment and Plan Assessment & Plan (1) Mixed hyperlipidemia: Code(s): E78.2 - Mixed hyperlipidemia Plan: Results of his labs done last month reviewed and discussed with patient Reinforced low cholesterol diet Continue Atorvastatin 40 mg QD Will have him recheck his labs and fasting lipids in 4 months for follow-up (2) Elevated LFTs: Code(s): R79.89 - Other specified abnormal findings of blood chemistry Plan: Improved on his recent labs - were most likely due to hepatosteatosis Abdominal US done a few months ago revealed (+) mild hepatomegaly and mild splenomegaly Hepatitis screen done a few months ago came back negative Will continue to monitor his LFTs regularly (3) GERD without esophagitis: Code(s): K21.9 - Gastro-esophageal reflux disease without esophagitis Plan: Dietary restrictions reinforced Continue Omeprazole 20 mg QD (4) Impaired fasting glucose: Code(s): R73.01 - Impaired fasting glucose Plan: FBS has been elevated in the past and was still elevated on his most recent labs a few weeks ago at 129 mg/dl; HgbA1c was normal at 5.6% a few months ago Reinforced low calorie diet Will continue to monitor this closely (5) Erectile dysfunction: Code(s): N52.9 - Male erectile dysfunction, unspecified Qualifiers: Erectile dysfunction type: unspecified Qualified Code(s): N52.9 - Male erectile dysfunction, unspecified Plan: Serum testosterone level came out normal on his recent labs Continue Sildenafil 50 mg QD PRN (6) Fatigue: Code(s): R53.83 - Other fatigue Qualifiers: Fatigue type: unspecified Qualified Code(s): R53.83 - Other fatigue Plan: Advised that his fatigue is most likely related to his poor sleep quality as it keeps getting interrupted by his frequent trips to the bathroom at night and should improve with better control of his nocturia If this persists despite his other symptoms being controlled, will need to consider getting a sleep study for further evaluation (7) Otitis media of left ear: Code(s): H66.92 - Otitis media, unspecified, left ear Qualifiers: Otitis media type: unspecified Qualified Code(s): H66.92 - Otitis media, unspecified, left ear Plan: Will start patient on Cipro HC otic solution to apply 5 into the left ear BID x 7 days (8) Benign prostatic hyperplasia with nocturia: Code(s): N40.1 - Benign prostatic hyperplasia with lower urinary tract symptoms; R35.1 - Nocturia Plan: Patient states that Tamsulosin 0.4 mg Q HS has been helping with his symptoms His PSA level came back normal when checked a few months ago (9) Insomnia: Code(s): G47.00 - Insomnia, unspecified Qualifiers: Insomnia type: unspecified Qualified Code(s): G47.00 - Insomnia, unspecified Plan: Sleep hygiene reinforced Continue Trazodone 50 mg Q HS PRN (10) Obesity (BMI 30-39.9): Code(s): E66.9 - Obesity, unspecified Plan: Reinforced diet/exercise as tolerated/lose weight Plan Follow up in 4 months Orders: Orders Complete Blood Count Auto Diff 4 Months I10 - Essential (primary) hypertension Comprehensive [place]. Panel Fast 4 Months E78.00 - Pure hypercholesterolemia, unspecified UA CC w/rflx Micro + Cult 4 Months R30.0 - Dysuria Vitamin D 25-OH Total 4 Months E55.9 - Vitamin D deficiency, unspecified Hemoglobin A1c 4 Months R73.01 - Impaired fasting glucose Lipid Panel 4 Months E78.00 - Pure hypercholesterolemia, unspecified TSH reflex Free T4 4 Months E78.00 - Pure hypercholesterolemia, unspecified Medications: New ciprofloxacin-hydrocortisone 0.2-1 % (Cipro HC) 3 drps otic (ear) left BID 10 mL 0RF 7 days Coding Level of Care Code Est Pt Level 4 (48729) Diagnoses Mixed hyperlipidemia E78.2 Elevated LFTs R79.89 GERD without esophagitis K21.9 Impaired fasting glucose R73.01 Erectile dysfunction, unspecified erectile dysfunction type N52.9 Erectile dysfunction type: unspecified Fatigue, unspecified type R53.83 Fatigue type: unspecified Left otitis media, unspecified otitis media type H66.92 Otitis media type: unspecified Benign prostatic hyperplasia with nocturia N40.1; R35.1 Insomnia, unspecified type G47.00 Insomnia type: unspecified Obesity (BMI 30-39.9) E66.9
== END 2023-09-02 16:08 | disposition home or self-care (01) ==
PROVIDERS: PCP Internal Medicine; Visit Provider Internal Medicine
DX: E78.2 Mixed hyperlipidemia (principal); R79.89 Other specified abnormal findings of blood chemistry; K21.9 Gastro-esophageal reflux disease without esophagitis; R73.01 Impaired fasting glucose; N52.9 Male erectile dysfunction, unspecified; R53.83 Other fatigue; H66.92 Otitis media, unspecified, left ear; N40.1 Benign prostatic hyperplasia with lower urinary tract symptoms; R35.1 Nocturia; G47.00 Insomnia, unspecified; E66.9 Obesity, unspecified
CPT/HCPCS: 99214

== ENCOUNTER 2023-09-10 12:39 | Outpatient (AMB) | payer MEDICARE, SELFPAY ==
--- NOTE | 2023-09-10 12:48 | MHC.OFFVIS ---
Intake Vital Signs 09/10/23 12:49 Height 6 ft 2 in Weight 253 lb 8.505 oz BMI 32.5 BP 122/80 Blood Pressure Location Lt brachial Position Sitting Pulse 63 Intake Visit Reasons: 1 yr f/up Intake Note: 1 year follow-up with ekg c/o fatigue Lead Burner Required: No Allergies trazodone Adverse Reaction (Intermediate, Verified 09/02/23 15:58) nightmares Medication List - Last Reconciled 09/10/23 by Steve Mullen MD albuterol sulfate 90 mcg/actuation 2 puffs inhalation Q6H PRN amlodipine 2.5 mg PO BID 90 days aspirin 81 mg PO DAILY atorvastatin 40 mg PO DAILY cetirizine 10 mg PO DAILY ofloxacin 0.3% 10 drps otic (ears) DAILY 7 days omeprazole 20 mg PO DAILY sildenafil 50 mg PO DAILY PRN 30 days trazodone 50 mg PO BEDTIME PRN 90 days triamcinolone acetonide 0.1% 1 appl topical BID PRN HPI HPI Comments History of Present Illness Details Jah comes for follow-up. He has been doing well from cardiac perspective. Complains of symptoms of fatigue and set by the morning time usually feels tired and sleepy. He said he has been worked up for sleep apnea in the past and does have sleep apnea but is not been able to use CPAP. He also says since January he has not been able to exercise much due to back pain. He denies any exertional chest pain. No worsening shortness of breath, orthopnea, PND. No leg edema. Most recent LDL well optimized at 44. Blood pressure is well controlled. [facility] Medical History Impaired fasting glucose Obesity (BMI 30-39.9) Pure hypercholesterolemia GERD without esophagitis Insomnia Hyperlipidemia Surgical History S/P cardiac catheterization (~06/26/22) History of neck surgery History of colonoscopy History of thumb surgery History of left knee surgery Family History Father Colon cancer Mother Heart failure Brother Lung cancer Prostate cancer Brother Stroke Brother In good health Daughter In good health Social History Housing: Apartment Alcohol intake: former Patient Tobacco Use Status: Former Tobacco user Tobacco use type: Cigarette Years Smoked: stopped 23 years ago e-Cigarette/Vaping Use: Never Used service: No Current occupational status: employed Cognitive needs: No Hearing needs: No Vision needs: Yes Review of Systems Const Denies chills, Denies fatigue, Denies fever(s), Denies frequent falls, Denies weakness, Denies weight gain and Denies weight loss ENT Denies dizziness Card Denies chest pain, Denies leg edema, Denies lightheadedness, Denies palpitations, Denies dyspnea, Denies dyspnea on exertion, Denies orthopnea and Denies other (loss of consciousness) Resp Denies cough, Denies dyspnea and Denies dyspnea on exertion GI Denies hematochezia and Denies change in stool character Musc Denies abnormal gait, Denies muscle weakness, Denies numbness, Denies radiating pain into limb and Denies tingling Neuro Denies Abnormal speech present, Denies abnormal gait, Denies dizziness, Denies frequent falls, Denies numbness, Denies tingling and Denies weakness Endo Denies fatigue and Denies palpitations Physical Exam Vital Signs: Last Vital Signs Pulse 63 09/10/23 12:49 BP 122/80 09/10/23 12:49 BMI result Body Mass Index 32.5 Const General: cooperative, comfortable, no acute distress, well developed, alert and awake Nutritional Appearance: overweight Orientation/consciousness: patient oriented x3 Limitations: no limitations Neck Neck: Yes trachea midline, Yes supple and Yes no JVD Chest Chest palpation & inspection: normal inspection of the chest Resp Effort & Inspection: normal respiratory effort Auscultation: clear to auscultation bilaterally Cardio Jugular venous distension: no JVD Palpation: normal PMI Rate: regular rate Rhythm: regular rhythm Heart sounds: S1 normal heart sound present, S2 normal heart sound present, no click, no gallops, no murmurs and no rubs Bruits: no carotid bruits Neuro General: patient oriented x3 and no focal motor deficits Speech: No Abnormal speech present Psych Appearance: grossly normal Office Procedures EKG Details: EKG shows normal sinus rhythm with left axis deviation with poor R-wave progression most likely due to lead placement [id number], Complete Assessment & Plan Assessment & Plan (1) CAD (coronary artery disease): Code(s): I25.10 - Atherosclerotic heart disease of [place] coronary artery without angina pectoris Plan: Two vessel nonobstructive coronary artery disease with moderate atherosclerosis. No current symptoms suggestive of progressive atherosclerotic disease. He has no symptoms of angina. Discussed with him about management of atherosclerotic disease. Advised to pursue low-dose aspirin therapy for life. Blood pressure is currently well optimized on current therapy continue the same. LDL is extremely well optimized. Encouraged to increase activity level as tolerated and paying attention to his spine issues was discussed. Continue participate in dietary modification weight loss program. His symptoms of fatigue appear to be either related to deconditioning and/or obstructive sleep apnea. Discussed with him about possibly seeing sleep specialist, he wants to think about it. Follow up in the clinic in 1 year's time, sooner p.r.n.. Thank you for allowing me to partake in his care Coding Level of Care Code Est Pt Level 4 (13548) Diagnoses CAD (coronary artery disease) I25.10 CPT Codes EKG - CPT: 55822-[id number], Complete ([id number])
[2023-09-10 12:49] VITALS: BP 122/80; PULSE 63; BMI 32.5
== END 2023-09-10 13:07 | disposition home or self-care (01) ==
PROVIDERS: Visit Provider Internal Medicine Cardiovascular Disease
DX: I25.10 Atherosclerotic heart disease of native coronary artery without angina pectoris (principal)
CPT/HCPCS: 93010; 99214

== ENCOUNTER → 2023-09-10 12:39 | Outpatient (BNVA) | payer MEDICARE, SELFPAY | PROVIDERS: Visit Provider Internal Medicine Cardiovascular Disease | DX: I25.10 Atherosclerotic heart disease of native coronary artery without angina pectoris (principal) | CPT/HCPCS: 93005; 99212 ==

== ENCOUNTER 2023-12-20 06:10 | Outpatient (REF) | payer MEDICARE, SELFPAY ==
[2023-12-20 06:43] LABS: MANUAL DIFF FLAG NO
[2023-12-20 06:56] LABS: Basophils Percent Auto 0.7 % (0-2); Eosinophils Absolute Auto 0.4 X10*3/uL (0.0-0.4); Eosinophils Percent Auto 6.9 % (0-4); Hematocrit 41.6 % (42.0-52.0); Hemoglobin 14.5 g/dl (14.0-18.0); Imm Gran Abs Auto 0.02 X10*3/uL (0.00-0.03); Imm Gran Pct Auto 0.3 % (0.0-0.4); Lymphocytes Absolute Auto 1.8 X10*3/uL (1.2-4.9); Lymphocytes Percent Auto 29.2 % (20-40); Mean Corpuscular HGB Conc 34.9 g/dl (31.0-36.0); Mean Corpuscular Hemoglobin 32.5 pg (27.0-33.0); Mean Corpuscular Volume 93.3 fL (80.0-98.0); Monocytes Absolute Auto 0.6 X10*3/uL (0.1-1.2); Monocytes Percent Auto 9.1 % (2-11); Neutrophils Absolute Auto 3.3 x10*3/uL (2.0-8.3); Neutrophils Percent Auto 53.8 % (45-73); Platelet Count 197 X10*3/uL (160-400); Red Blood Count 4.46 X10*6/uL (4.60-5.80); Red Cell Distribution Width 11.9 % (11.0-16.0); White Blood Count 6.1 X10*3/uL (4.8-10.8)
[2023-12-20 07:01] LABS: Estimated Average Glucose 128 mg/dL; Hemoglobin A1c % 6.1 % (<6.0)
[2023-12-20 07:23] LABS: Alanine Aminotransferase 37 U/L (0-40); Albumin Level 4.4 g/dL (3.5-5.0); Alkaline Phosphatase 45 U/L (39-117); Anion Gap 11 (12-20); Aspartate Amino Transferase 28 U/L (5-37); Bilirubin Total 1.7 mg/dL (0.0-1.0); Blood Urea Nitrogen 18 mg/dL (9-16); Calcium 9.2 mg/dL (8.4-10.2); Carbon Dioxide 29 mmol/L (22-29); Chloride 107 mmol/L (96-108); Cholesterol 112 mg/dL (<200); Estimated Glomerular Filt Rate 54; Glucose Fasting 143 mg/dL (60-99); HDL Cholesterol 26 mg/dL (>40); LDL Cholesterol Calculated 54 mg/dL (<100); Sodium 143 mmol/L (135-145); Total Protein 7.3 g/dL (6.5-8.0); Triglycerides 163 mg/dL (<150)
[2023-12-20 07:40] LABS: TSH reflex Free T4 2.69 uIU/mL (0.32-4.0); Vitamin D 25-OH Total 54.7 ng/mL (>30)
[2023-12-20 07:49] LABS: Appearance Urine Clear; Color Urine Yellow; Glucose Urine UA Negative (Negative); Leukocyte Esterase Urine Negative (Negative); Nitrite Urine Negative (Negative); PH 5.5 (5.0-9.0); Urine Blood Negative (Negative); Urine Ketones Negative (Negative); Urine Protein Negative (Neg-Trace)
== END 2023-12-20 06:11 | disposition home or self-care (01) ==
LOC: HO.LAB 06:10
PROVIDERS: PCP Internal Medicine; Visit Provider Internal Medicine
DX: E78.00 Pure hypercholesterolemia, unspecified (principal); R30.0 Dysuria; R73.01 Impaired fasting glucose; I10 Essential (primary) hypertension; E55.9 Vitamin D deficiency, unspecified
CPT/HCPCS: 36415; 80053; 80061; 81003; 82306; 83036; 84443; 85025

== ENCOUNTER 2023-12-31 15:18 | Outpatient (AMB) | payer OTHER, SELFPAY ==
--- NOTE | 2023-12-31 15:24 | MHC.PC.OV ---
Vital Signs 12/31/23 15:26 Height 6 ft 2 in Weight 252 lb BMI 32.4 BP 130/70 Blood Pressure Location Lt brachial Position Sitting Pulse 70 Pulse Source Pulse Oximeter Pulse Oximetry (%) 93 Oxygen Delivery Method Room Air Intake Visit Reasons: 4 month f/u - see comment Intake Note: Patient is here to follow up on BPH, ED,CAD,IFG, Asthma. 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 Accompanied by: Self / Same As Patient Allergies trazodone Adverse Reaction (Intermediate, Verified 02/25/24 13:25) nightmares Medication List - Last Reconciled 12/31/23 by Germán Bradford MD albuterol sulfate 90 mcg/actuation 2 puffs inhalation Q6H PRN amlodipine 2.5 mg PO BID 90 days aspirin 81 mg PO DAILY atorvastatin 40 mg PO DAILY Breo Ellipta 100-25 mcg/dose (fluticasone furoate-vilanterol) 1 inh inhalation DAILY NS cetirizine 10 mg PO DAILY ofloxacin 0.3% 10 drps otic (ears) DAILY 7 days omeprazole 20 mg PO DAILY sildenafil 50 mg PO DAILY PRN 30 days tamsulosin 0.4 mg PO BEDTIME 90 days trazodone 50 mg PO BEDTIME PRN 90 days triamcinolone acetonide 0.1% 1 appl topical BID PRN Tobacco use date assessed: 12/31/23 Fall risk assessment: No Falls in past year Last assessed Fall Risk: 12/31/23 Dental Screening Dental Screen Date: 12/31/23 Did you have a dental visit in the last 12 months?: Yes Did you have a dental problem in the last 6 months where you did not have access to dental care?: No Was dental information given to patient?: Patient has dentist HPI 4 month f/u - see comment HPI Details Patient comes in today for his follow up visit States that he will be undergoing surgery with Dr. Farr soon but as of now, no date is set yet for his surgery He continues to experience frequent low back pain that radiates down his leg and is hoping that the surgery will relieve a lot of his current symptoms Reports that he has been experiencing on and off itching lately in his ears, both over the outside of his ears as well as inside his ears - is not sure why this is occurring He denies any ear pain and has had no issues with his hearing lately Adds that he's had a recurrent cough for a couple of weeks now and states that he often coughs up thick whitish phlegm lately Feels that he has some wheezing lately when he is coughing and he was just started on a trial of Breo Ellipta, which he feels is helping He denies any headaches or dizziness Denies any chest pains No nausea/ vomiting, no abdominal pain No change in bowel habits noted Needs a couple of his Rx refilled Had his follow-up labs done a couple of weeks ago - to discuss his results [facility] Medical History (Updated 02/25/24 @ 13:47 by Germán Bradford MD) COPD (chronic obstructive pulmonary disease) Lumbar disc herniation with radiculopathy Impaired fasting glucose Obesity (BMI 30-39.9) Pure hypercholesterolemia GERD without esophagitis Insomnia Hyperlipidemia Surgical History (Updated 02/25/24 @ 13:37 by Germán Bradford MD) Hx of decompressive lumbar laminectomy S/P cardiac catheterization (~06/26/22) History of neck surgery History of colonoscopy History of thumb surgery History of left knee surgery Family History Father Colon cancer Mother Heart failure Brother Lung cancer Prostate cancer Brother Stroke Brother In good health Daughter In good health Social History Housing: Apartment Alcohol intake: former Patient Tobacco Use Status: Former Tobacco user Tobacco use type: Cigarette Years Smoked: stopped 23 years ago e-Cigarette/Vaping Use: Never Used Second Hand Smoke Exposure: Yes service: No Current occupational status: employed Cognitive needs: No Hearing needs: No Vision needs: Yes (glasses) Questionnaire PHQ-9 Over the last 2 weeks, how often have you been bothered by any of the following problems? 1. Little interest or pleasure in doing things: not at all 2. Feeling down, depressed, or hopeless: several days 3. Trouble falling or staying asleep, or sleeping too much: not at all 4. Feeling tired or having little energy: nearly every day 5. Poor appetite or overeating: not at all 6. Feeling bad about yourself - or that you are a failure or have let yourself or your family down: not at all 7. Trouble concentrating on things, such as reading the newspaper or watching television: nearly every day 8. Moving or speaking so slowly that other people could have noticed. Or the opposite - being so fidgety or restless that you have been moving around a lot more than usual: not at all 9. Thoughts that you would be better off or of hurting yourself in some way: not at all Total score: 7 Depression Screening Interpretation: Positive Depression Screening Follow-up: Existing condition Depression Screening Done: Yes 09892 - PHQ-9 Billing: Yes Source: Developed by Drs. Erickson Mathew, Fannie Solorzano, Rusty Turner and colleagues, with an educational rachel from [employer]. Thrive Questionnaire Date Thrive assessed: 12/31/23 I am a: Patient What is your living situation today?: I have a steady place to live Within the past 12 months, did the food you bought not last and you didn't have the money to get more?: Never true Within the past 12 months, did you worry whether your food would run out before you got money to buy more?: Never true Do you have trouble paying for medicines?: No Do you have trouble getting transportation to medical appointments?: No Do you have trouble paying your heating and electricity bill?: No Do you have trouble taking care of your child, family member or friend?: No Do you have trouble with day-to-day activities such as bathing, preparing meals, shopping, managing finances, etc.?: No Are you currently unemployed and looking for a job?: No Are you interested in more education?: No Currently or been in a relationship where the following occur: no concerns reported THRIVE Score: 0 AUDIT C Alcohol Use Questionnaire (AUDIT-C) 1. How often do you have a drink containing alcohol?: Never 3. How often do you have six or more drinks on one occasion?: Never Total Score: 0 Score Reviewed/Action Taken: Yes ARIAN-7 AMB Questionnaire RAIAN-7 Date ARIAN - 7 assessed: 12/31/23 Feeling nervous, anxious, or on edge: 0 = Not at all Not being able to stop or control worryin = Not at all Worrying too much about different things: 0 = Not at all Trouble relaxin = Not at all Being so restless that it is hard to sit still: 0 = Not at all Becoming easily annoyed or irritable: 0 = Not at all Feeling afraid as if something awful might happen: 0 = Not at all Total ARIAN-7 score (0-4 normal; 5-9 mild; 10-14 moderate; 15-21 severe): 0 Source: Developed by Drs. Erickson Mathew, Fannie Solorzano, Rusty Turner and colleagues, with an educational rachel from [employer]. Review of Systems Const Denies chills, Reports difficulty sleeping (on and off), Reports fatigue, Denies fever(s) and Denies headache(s) ENT Details: c/o itching in his ears - see HPI Denies dysphagia, Denies dizziness, Denies otalgia, Denies headache(s), Denies neck pain, Denies odynophagia and Denies sore throat Card Denies chest pain, Denies palpitations and Reports dyspnea on exertion (mild) Resp Reports chest congestion (mild, at times), Reports cough (recurrent - coughs up thick whitish phlegm), Reports dyspnea on exertion (mild) and Reports wheezing (per patient) GI Denies abdominal pain, Denies constipation, Denies dysphagia, Denies heartburn, Denies diarrhea, Denies nausea, Denies odynophagia and Denies vomiting Reports erectile dysfunction, Denies dysuria, Denies urinary frequency and Denies urinary incontinence Musc Reports as per HPI, Reports back pain (over the lower back - chronic), Denies neck pain and Reports radiating pain into limb (at times, into his legs) Skin/Breast Denies rash Neuro Denies dizziness and Denies headache(s) Endo Reports fatigue and Denies palpitations Aller/Immun Reports wheezing (per patient) Physical exam (Primary Care) Vital Signs: Last Vital Signs Pulse 70 12/31/23 15:26 BP 130/70 12/31/23 15:26 Pulse Ox 93 12/31/23 15:26 Oxygen Delivery Method Room Air 12/31/23 15:26 BMI result Body Mass Index 32.4 Tobacco/Smoking Status: Tobacco use Status Tobacco use date assessed 12/31/23 12/31/23 15:29 Patient Tobacco Use Status Former Tobacco user 12/31/23 15:29 Tobacco use type Cigarette 03/26/24 15:29 e-Cigarette/Vaping Use Never Used 12/31/23 15:29 PHQ-9: PHQ-9 Score PHQ-9: Total score 7 12/31/23 15:45 Depression Screening Interpretation: Positive Depression Screening Follow-up: Existing condition Thrive Assessment: Date of Thrive Assessment Date Thrive assessed 12/31/23 12/31/23 15:29 Currently or been in a relationship where the following occur: no concerns reported Const General: no acute distress and alert HENMT Ears: TM's normal bilaterally and EAC's normal Throat: Yes posterior oropharynx normal and Yes tonsils normal (no TP congestion) Neck Neck: Yes no lymphadenopathy and Yes supple Thyroid: Thyroid normal Resp Auscultation: no crackles, no rales, no wheezes and diminished lung sounds (slightly) bilateral Cardio Rate: regular rate Rhythm: regular rhythm Heart sounds: no murmurs GI Palpation (GI): Soft to palpation and nontender Auscultation: normal bowel sounds General: Yes no CVA tenderness Back/Spine/Pelvis Back: no CVA tenderness Thoracic/Lumbar Spine: lumbar spinal tenderness Skin Rashes: no rashes Extrem General: Yes no clubbing, cyanosis or edema Results Reviewed Results Reviewed: Laboratory Tests 12/20/23 12/20/23 06:34 06:41 WBC 6.1 Hgb 14.5 Hct 41.6 L Plt Count 197 Sodium 143 Potassium 4.0 Creatinine 1.31 Estimated GFR 54 Fasting Glucose 143 H Hemoglobin A1c % 6.1 H Calcium 9.2 Total Bilirubin 1.7 H AST 28 ALT 37 Triglycerides 163 H Cholesterol 112 LDL Cholesterol, Calc 54 HDL Cholesterol 26 L 25-OH Vitamin D Total 54.7 TSH 2.69 Ur Specific [place] 1.020 Urine Protein Negative Urine Glucose (UA) Negative Urine Blood Negative Urine Nitrite Negative Ur Leukocyte Esterase Negative Assessment and Plan Assessment & Plan (1) Lumbar disc herniation with radiculopathy: Comment: S/P left L3-L4 lumbar laminotomy Code(s): M51.16 - Intervertebral disc disorders with radiculopathy, lumbar region Plan: Reinforced activity and weight-lifting restrictions to avoid aggravating his lower back pain Patient states that he will be undergoing back surgery soon but no date is set for surgery yet - is hoping that surgery will relieve a lot of his symptoms, which she feels are getting worse Follow up with neurosurgery as scheduled (2) Mixed hyperlipidemia: Code(s): E78.2 - Mixed hyperlipidemia Plan: Results of his labs done a couple of weeks ago reviewed and discussed with patient Reinforced low cholesterol diet Continue Atorvastatin 40 mg QD Will recheck his labs and fasting lipids in 4 months for follow-up (3) Elevated LFTs: Code(s): R79.89 - Other specified abnormal findings of blood chemistry Plan: Improved on his previous labs and these have remained normal on his current labs - was most likely due to hepatosteatosis Abdominal US done back in February 2022 revealed (+) mild hepatomegaly and mild splenomegaly; hepatitis screen came back negative Will continue to monitor his LFTs regularly (4) COPD (chronic obstructive pulmonary disease): Code(s): J44.9 - Chronic obstructive pulmonary disease, unspecified Qualifiers: COPD type: unspecified COPD Qualified Code(s): J44.9 - Chronic obstructive pulmonary disease, unspecified Plan: Continue Breo Ellipta 100-25 mcg 1 inhalation QD (Rx refilled) and Albuterol HFA 1 to 2 inhalations Q 6 hours PRN (5) GERD without esophagitis: Code(s): K21.9 - Gastro-esophageal reflux disease without esophagitis Plan: Dietary restrictions reinforced Continue Pantoprazole 40 mg QD (6) Impaired fasting glucose: Code(s): R73.01 - Impaired fasting glucose Plan: Reinforced low calorie/low carb diet His HgbA1c was at 6.1% on his labs done a couple of weeks ago (7) Erectile dysfunction: Code(s): N52.9 - Male erectile dysfunction, unspecified Qualifiers: Erectile dysfunction type: unspecified Qualified Code(s): N52.9 - Male erectile dysfunction, unspecified Plan: Continue Sildenafil 50 mg QD PRN - Rx refilled (8) Benign prostatic hyperplasia with nocturia: Code(s): N40.1 - Benign prostatic hyperplasia with lower urinary tract symptoms; R35.1 - Nocturia Plan: Continue Tamsulosin 0.4 mg Q HS - states that Rx has helped with his symptoms somewhat Follow up with urology as scheduled (9) Insomnia: Code(s): G47.00 - Insomnia, unspecified Qualifiers: Insomnia type: unspecified Qualified Code(s): G47.00 - Insomnia, unspecified Plan: Sleep hygiene reinforced Continue Trazodone 50 mg Q HS PRN (10) Obesity (BMI 30-39.9): Code(s): E66.9 - Obesity, unspecified Plan: Reinforced diet; exercise and weight loss are currently not practical due to his physical issues Plan Follow up in 4 months Orders: Orders Lipid Panel 3 Months E78.00 - Pure hypercholesterolemia, unspecified Complete Blood Count Auto Diff 4 Months D64.9 - Anemia, unspecified Comprehensive [place]. Panel Fast 3 Months E78.00 - Pure hypercholesterolemia, unspecified Medications: New Breo Ellipta 100-25 mcg/dose (fluticasone furoate-vilanterol) 1 inh inhalation DAILY 60 ea 3RF NS tamsulosin 0.4 mg PO BEDTIME 90 caps 1RF 90 days Refilled sildenafil administer 30 minutes to 4 hours before activity 50 mg PO DAILY PRN 10 tabs 2RF sexual activity 30 days Coding Level of Care Code Est Pt Level 4 (65969) Diagnoses Lumbar disc herniation with radiculopathy M51.16 Mixed hyperlipidemia E78.2 Elevated LFTs R79.89 Chronic obstructive pulmonary disease, unspecified COPD type J44.9 COPD type: unspecified COPD GERD without esophagitis K21.9 Impaired fasting glucose R73.01 Erectile dysfunction, unspecified erectile dysfunction type N52.9 Erectile dysfunction type: unspecified Benign prostatic hyperplasia with nocturia N40.1; R35.1 Insomnia, unspecified type G47.00 Insomnia type: unspecified Obesity (BMI 30-39.9) E66.9
[2023-12-31 15:26] VITALS: BP 130/70; PULSE 70; O2SAT 93; BMI 32.4
== END 2023-12-31 16:02 | disposition home or self-care (01) ==
PROVIDERS: PCP Internal Medicine; Visit Provider Internal Medicine
DX: M51.16 Intervertebral disc disorders with radiculopathy, lumbar region (principal); E78.2 Mixed hyperlipidemia; R79.89 Other specified abnormal findings of blood chemistry; J44.9 Chronic obstructive pulmonary disease, unspecified; K21.9 Gastro-esophageal reflux disease without esophagitis; R73.01 Impaired fasting glucose; N52.9 Male erectile dysfunction, unspecified; N40.1 Benign prostatic hyperplasia with lower urinary tract symptoms; R35.1 Nocturia; G47.00 Insomnia, unspecified; E66.9 Obesity, unspecified
CPT/HCPCS: 99214

== ENCOUNTER 2024-02-25 13:02 | Outpatient (AMB) | payer MEDICARE, SELFPAY ==
[2024-02-25 13:03] VITALS: BP 130/84; PULSE 66; O2SAT 97; BMI 31.1
--- NOTE | 2024-02-25 13:03 | MHC.PC.OV ---
Vital Signs 02/25/24 13:03 Height 6 ft 2 in Weight 242 lb BMI 31.1 BP 130/84 Blood Pressure Location Lt brachial Position Sitting Pulse 66 Pulse Source Pulse Oximeter Pulse Oximetry (%) 97 Oxygen Delivery Method Room Air Intake Visit Reasons: [facility] 02/23 Intake Note: Patient is here for hospital discharge follow up. 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 Allergies trazodone Adverse Reaction (Intermediate, Verified 02/25/24 13:25) nightmares Medication List - Last Reconciled 02/25/24 by Germán Bradford MD albuterol sulfate 90 mcg/actuation 2 puffs inhalation Q6H PRN amlodipine 2.5 mg PO BID 90 days aspirin 81 mg PO DAILY atorvastatin 40 mg PO DAILY Breo Ellipta 100-25 mcg/dose (fluticasone furoate-vilanterol) 1 inh inhalation DAILY NS cetirizine 10 mg PO DAILY ofloxacin 0.3% 10 drps otic (ears) DAILY 7 days omeprazole 20 mg PO DAILY oxycodone mg PO pantoprazole 40 mg PO DAILY sildenafil 50 mg PO DAILY PRN 30 days tamsulosin 0.4 mg PO BEDTIME 90 days trazodone 50 mg PO BEDTIME PRN 90 days triamcinolone acetonide 0.1% 1 appl topical BID PRN Tobacco use date assessed: 02/25/24 Dental Screening Dental Screen Date: 12/31/23 HPI [facility] 02/23 HPI Details Patient comes in today for his HDF follow up visit He underwent left L3-L4 laminotomy/microdiscectomy at [facility] with Dr. Souza a couple of weeks ago on 02/15/2024 and was discharged to short-term rehab a couple of days later on 02/17/2024 Patient spent about 1 week at rehab and was discharged home yesterday (02/24/2024) States that he was supposed to get a call sometime today so they can get him set up and started on home PT He has a follow up appointment scheduled with Dr. Souza next month on 03/16/2024 Patient states that he still has increased pain over his lower back and that it is likely still too early to tell if his back surgery helped or not He presently denies any fever or chills; denies any headaches or dizziness Denies any chest pains, no SOB No nausea/vomiting, no abdominal pain No change in bowel habits noted PFSH Medical History (Updated 02/25/24 @ 13:47 by Germán Bradford MD) COPD (chronic obstructive pulmonary disease) Lumbar disc herniation with radiculopathy Impaired fasting glucose Obesity (BMI 30-39.9) Pure hypercholesterolemia GERD without esophagitis Insomnia Hyperlipidemia Surgical History (Updated 02/25/24 @ 13:37 by Germán Bradford MD) Hx of decompressive lumbar laminectomy S/P cardiac catheterization (~06/26/22) History of neck surgery History of colonoscopy History of thumb surgery History of left knee surgery Family History Father Colon cancer Mother Heart failure Brother Lung cancer Prostate cancer Brother Stroke Brother In good health Daughter In good health Social History Housing: Apartment Alcohol intake: former Patient Tobacco Use Status: Former Tobacco user Tobacco use type: Cigarette Years Smoked: stopped 23 years ago e-Cigarette/Vaping Use: Never Used Second Hand Smoke Exposure: Yes service: No Current occupational status: employed Cognitive needs: No Hearing needs: No Vision needs: Yes (glasses) Questionnaire Thrive Questionnaire Date Thrive assessed: 12/31/23 AUDIT C Alcohol Use Questionnaire (AUDIT-C) 1. How often do you have a drink containing alcohol?: Never Total Score: 0 ARIAN-7 AMB Questionnaire ARIAN-7 Date ARIAN - 7 assessed: 12/31/23 Source: Developed by Drs. Erickson Mathew, Fannie Solorzano, Rusty Turner and colleagues, with an educational rachel from [employer]. Review of Systems Const Denies chills, Reports difficulty sleeping (on and off), Reports fatigue, Denies fever(s) and Denies headache(s) ENT Denies dysphagia, Denies dizziness, Denies otalgia, Denies headache(s), Denies neck pain, Denies odynophagia and Denies sore throat Card Denies chest pain, Denies palpitations and Denies dyspnea Resp Denies cough, Denies dyspnea and Denies wheezing GI Denies abdominal pain, Denies constipation, Denies dysphagia, Denies heartburn, Denies diarrhea, Denies nausea, Denies odynophagia and Denies vomiting Reports erectile dysfunction, Denies dysuria, Denies urinary frequency and Denies urinary incontinence Musc Reports as per HPI, Reports back pain (over the lower back - chronic) and Denies neck pain Skin/Breast Denies rash Neuro Denies dizziness and Denies headache(s) Endo Reports fatigue and Denies palpitations Aller/Immun Denies wheezing Physical exam (Primary Care) Vital Signs: Last Vital Signs Pulse 66 02/25/24 13:03 BP 130/84 02/25/24 13:03 Pulse Ox 97 02/25/24 13:03 Oxygen Delivery Method Room Air 02/25/24 13:03 BMI result Body Mass Index 31.1 Tobacco/Smoking Status: Tobacco use Status Tobacco use date assessed 02/25/24 02/25/24 13:03 Patient Tobacco Use Status Former Tobacco user 02/25/24 13:03 Tobacco use type Cigarette 02/25/24 13:03 e-Cigarette/Vaping Use Never Used 02/25/24 13:03 Thrive Assessment: Date of Thrive Assessment Date Thrive assessed 12/31/23 02/25/24 13:03 Const General: no acute distress and alert HENMT Ears: TM's normal bilaterally and EAC's normal Throat: Yes posterior oropharynx normal and Yes tonsils normal (no TP congestion) Neck Neck: Yes no lymphadenopathy and Yes supple Thyroid: Thyroid normal Resp Auscultation: clear to auscultation bilaterally, no rales and no wheezes Cardio Rate: regular rate Rhythm: regular rhythm Heart sounds: no murmurs GI Palpation (GI): Soft to palpation and nontender Auscultation: normal bowel sounds General: Yes no CVA tenderness Back/Spine/Pelvis Back: no CVA tenderness Thoracic/Lumbar Spine: lumbar spinal tenderness Skin Rashes: no rashes Extrem General: Yes no clubbing, cyanosis or edema Assessment and Plan Assessment & Plan (1) Lumbar disc herniation with radiculopathy: Comment: S/P left L3-L4 lumbar laminotomy Code(s): M51.16 - Intervertebral disc disorders with radiculopathy, lumbar region Plan: S/P left L3-L4 laminotomy/microdiscectomy a couple of weeks ago on 02/15/[address] Bailey at [facility] He was just discharged from short-term rehab yesterday and will be starting home physical therapy soon Reinforced activity and weight-lifting restrictions to avoid aggravating his lower back Follow up with neurosurgery as scheduled - has appt with Dr. Bailey next month on 03/16/2024 (2) Mixed hyperlipidemia: Code(s): E78.2 - Mixed hyperlipidemia Plan: Reinforced low cholesterol diet Will have him recheck his labs and fasting lipids as scheduled in 2 months for follow-up (3) Elevated LFTs: Code(s): R79.89 - Other specified abnormal findings of blood chemistry Plan: Improved on his previous labs - was most likely due to hepatosteatosis Abdominal US done back in February 2022 revealed (+) mild hepatomegaly and mild splenomegaly; hepatitis screen came back negative Will continue to monitor his LFTs regularly (4) COPD (chronic obstructive pulmonary disease): Code(s): J44.9 - Chronic obstructive pulmonary disease, unspecified Qualifiers: COPD type: unspecified COPD Qualified Code(s): J44.9 - Chronic obstructive pulmonary disease, unspecified Plan: Continue Breo Ellipta 100-25 mcg 1 inhalation QD and Albuterol HFA 1 to 2 inhalations Q 6 hours PRN (5) GERD without esophagitis: Code(s): K21.9 - Gastro-esophageal reflux disease without esophagitis Plan: Dietary restrictions reinforced Continue Pantoprazole 40 mg QD (6) Impaired fasting glucose: Code(s): R73.01 - Impaired fasting glucose Plan: Reinforced low calorie/low carb diet His HgbA1c was at 6.1% back in December 2023 (7) Erectile dysfunction: Code(s): N52.9 - Male erectile dysfunction, unspecified Qualifiers: Erectile dysfunction type: unspecified Qualified Code(s): N52.9 - Male erectile dysfunction, unspecified Plan: Continue Sildenafil 50 mg QD PRN (8) Benign prostatic hyperplasia with nocturia: Code(s): N40.1 - Benign prostatic hyperplasia with lower urinary tract symptoms; R35.1 - Nocturia Plan: Continue Tamsulosin 0.4 mg Q HS - states that Rx has helped with his symptoms somewhat (9) Insomnia: Code(s): G47.00 - Insomnia, unspecified Qualifiers: Insomnia type: unspecified Qualified Code(s): G47.00 - Insomnia, unspecified Plan: Sleep hygiene reinforced Continue Trazodone 50 mg Q HS PRN (10) Obesity (BMI 30-39.9): Code(s): E66.9 - Obesity, unspecified Plan: Reinforced diet; exercise and weight loss are currently not practical due to his physical issues Plan Follow up as scheduled in April 2024 Coding Level of Care Code Est Pt Level 3 (68576) Diagnoses Lumbar disc herniation with radiculopathy M51.16 Mixed hyperlipidemia E78.2 Elevated LFTs R79.89 Chronic obstructive pulmonary disease, unspecified COPD type J44.9 COPD type: unspecified COPD GERD without esophagitis K21.9 Impaired fasting glucose R73.01 Erectile dysfunction, unspecified erectile dysfunction type N52.9 Erectile dysfunction type: unspecified Benign prostatic hyperplasia with nocturia N40.1; R35.1 Insomnia, unspecified type G47.00 Insomnia type: unspecified Obesity (BMI 30-39.9) E66.9
== END 2024-02-25 13:31 | disposition home or self-care (01) ==
LOC: HO.HMGH 13:02
PROVIDERS: PCP Internal Medicine; Visit Provider Internal Medicine
DX: M51.16 Intervertebral disc disorders with radiculopathy, lumbar region (principal); E78.2 Mixed hyperlipidemia; R79.89 Other specified abnormal findings of blood chemistry; J44.9 Chronic obstructive pulmonary disease, unspecified; K21.9 Gastro-esophageal reflux disease without esophagitis; R73.01 Impaired fasting glucose; N52.9 Male erectile dysfunction, unspecified; N40.1 Benign prostatic hyperplasia with lower urinary tract symptoms; R35.1 Nocturia; G47.00 Insomnia, unspecified
CPT/HCPCS: 99213

== ENCOUNTER 2024-04-06 06:04 | Outpatient (REF) | payer MEDICARE, SELFPAY ==
[2024-04-06 06:30] LABS: MANUAL DIFF FLAG NO
[2024-04-06 08:26] LABS: Basophils Percent Auto 0.8 % (0-2); Eosinophils Absolute Auto 0.4 X10*3/uL (0.0-0.4); Eosinophils Percent Auto 6.6 % (0-4); Hematocrit 41.8 % (42.0-52.0); Hemoglobin 14.5 g/dl (14.0-18.0); Imm Gran Abs Auto 0.01 X10*3/uL (0.00-0.03); Imm Gran Pct Auto 0.2 % (0.0-0.4); Lymphocytes Absolute Auto 1.7 X10*3/uL (1.2-4.9); Lymphocytes Percent Auto 32.5 % (20-40); Mean Corpuscular HGB Conc 34.7 g/dl (31.0-36.0); Mean Platelet Volume 9.3 fL (9.4-12.4); Monocytes Absolute Auto 0.5 X10*3/uL (0.1-1.2); Monocytes Percent Auto 8.7 % (2-11); Neutrophils Absolute Auto 2.7 x10*3/uL (2.0-8.3); Neutrophils Percent Auto 51.2 % (45-73); Platelet Count 200 X10*3/uL (160-400); Red Cell Distribution Width 12.1 % (11.0-16.0); White Blood Count 5.3 X10*3/uL (4.8-10.8)
[2024-04-06 08:57] LABS: Alanine Aminotransferase 32 U/L (0-40); Albumin Level 4.1 g/dL (3.5-5.0); Alkaline Phosphatase 43 U/L (39-117); Anion Gap 12 (12-20); Aspartate Amino Transferase 21 U/L (5-37); Bilirubin Total 1.8 mg/dL (0.0-1.0); Blood Urea Nitrogen 13 mg/dL (9-16); Carbon Dioxide 28 mmol/L (22-29); Chloride 105 mmol/L (96-108); Cholesterol 120 mg/dL (<200); Estimated Glomerular Filt Rate > 60; Glucose Fasting 156 mg/dL (60-99); HDL Cholesterol 32 mg/dL (>40); LDL Cholesterol Calculated 46 mg/dL (<100); Potassium 3.9 mmol/L (3.3-5.1); Sodium 141 mmol/L (135-145); Total Protein 6.9 g/dL (6.5-8.0); Triglycerides 211 mg/dL (<150)
== END 2024-04-06 06:05 | disposition home or self-care (01) ==
LOC: HO.LAB 06:04
PROVIDERS: PCP Internal Medicine; Visit Provider Internal Medicine
DX: E78.00 Pure hypercholesterolemia, unspecified (principal); D64.9 Anemia, unspecified
CPT/HCPCS: 36415; 80053; 80061; 85025

== ENCOUNTER 2024-05-05 14:22 | Outpatient (AMB) | payer MEDICARE, SELFPAY ==
[2024-05-05 14:35] VITALS: BP 148/72; PULSE 86; O2SAT 98; BMI 32.5
--- NOTE | 2024-05-05 14:35 | MHC.PC.OV ---
Vital Signs 05/05/24 14:35 Height 6 ft 2 in Weight 253 lb BMI 32.5 BP 148/72 H Blood Pressure Location Lt brachial Position Sitting Pulse 86 Pulse Source Pulse Oximeter Pulse Oximetry (%) 98 Oxygen Delivery Method Room Air Intake Visit Reasons: 4mth f/u Allergies trazodone Adverse Reaction (Intermediate, Verified 05/05/24 15:07) nightmares Medication List - Last Reconciled 05/05/24 by Germán Bradford MD albuterol sulfate 90 mcg/actuation 2 puffs inhalation Q6H PRN amlodipine 2.5 mg PO BID 90 days aspirin 81 mg PO DAILY atorvastatin 40 mg PO DAILY Breo Ellipta 100-25 mcg/dose (fluticasone furoate-vilanterol) 1 inh inhalation DAILY NS cetirizine 10 mg PO DAILY fluocinolone acetonide oil 0.01% 5 drps otic (ear) left BID PRN 7 days omeprazole 20 mg PO DAILY oxycodone 5 mg PO PRN pantoprazole 40 mg PO DAILY sildenafil 50 mg PO DAILY PRN 30 days tamsulosin 0.4 mg PO BEDTIME 90 days trazodone 50 mg PO BEDTIME PRN 90 days triamcinolone acetonide 0.1% 1 appl topical BID PRN Tobacco use date assessed: 02/25/24 Fall risk assessment: No Falls in past year Last assessed Fall Risk: 05/05/24 Dental Screening Dental Screen Date: 12/31/23 [facility] f/u HPI Details Patient comes in today for his follow up visit States that he still has increased pain over his lower back and is still going to physical therapy for his low back pain Relates that he had back surgery in early February 2024 but the surgery only helped with the pain radiating down his leg at the time States that he feels okay otherwise He denies any headaches or dizziness Denies any chest pains, no SOB No nausea/vomiting, no abdominal pain No change in bowel habits noted Still has trouble sleeping through the night and wakes up every couple of hours or so - states that he also has to go to the bathroom a few times a night Needs a couple of his Rx refilled Had his follow up labs done a few weeks ago - to discuss his results [facility] Medical History COPD (chronic obstructive pulmonary disease) Lumbar disc herniation with radiculopathy Impaired fasting glucose Obesity (BMI 30-39.9) Pure hypercholesterolemia GERD without esophagitis Insomnia Hyperlipidemia Surgical History Hx of decompressive lumbar laminectomy S/P cardiac catheterization (~06/26/22) History of neck surgery History of colonoscopy History of thumb surgery History of left knee surgery Family History Father Colon cancer Mother Heart failure Brother Lung cancer Prostate cancer Brother Stroke Brother In good health Daughter In good health Social History Housing: Apartment Alcohol intake: former Patient Tobacco Use Status: Former Tobacco user Tobacco use type: Cigarette Years Smoked: stopped 23 years ago e-Cigarette/Vaping Use: Never Used Second Hand Smoke Exposure: Yes service: No Current occupational status: employed Cognitive needs: No Hearing needs: No Vision needs: Yes (glasses) Questionnaire PHQ-9 Over the last 2 weeks, how often have you been bothered by any of the following problems? 1. Little interest or pleasure in doing things: not at all 2. Feeling down, depressed, or hopeless: several days 3. Trouble falling or staying asleep, or sleeping too much: not at all 4. Feeling tired or having little energy: nearly every day 5. Poor appetite or overeating: not at all 6. Feeling bad about yourself - or that you are a failure or have let yourself or your family down: not at all 7. Trouble concentrating on things, such as reading the newspaper or watching television: nearly every day 8. Moving or speaking so slowly that other people could have noticed. Or the opposite - being so fidgety or restless that you have been moving around a lot more than usual: not at all 9. Thoughts that you would be better off or of hurting yourself in some way: not at all Total score: 7 Depression Screening Interpretation: Positive Depression Screening Follow-up: Existing condition Depression Screening Done: Yes 39647 - PHQ-9 Billing: Yes Source: Developed by Drs. Erickson Mathew, Rusty Sol and colleagues, with an educational rachel from [employer]. Thrive Questionnaire Date Thrive assessed: 12/31/23 AUDIT C Alcohol Use Questionnaire (AUDIT-C) 1. How often do you have a drink containing alcohol?: Never 3. How often do you have six or more drinks on one occasion?: Never Total Score: 0 Score Reviewed/Action Taken: Yes ARIAN-7 AMB Questionnaire ARIAN-7 Date ARIAN - 7 assessed: 12/31/23 Source: Developed by Drs. Erickson Mathew, Rusty Sol and colleagues, with an educational rachel from [employer]. Review of Systems Const Denies chills, Reports difficulty sleeping, Reports fatigue, Denies fever(s) and Denies headache(s) ENT Denies dysphagia, Denies dizziness, Denies otalgia, Denies headache(s), Denies neck pain, Denies odynophagia and Denies sore throat Card Denies chest pain, Denies palpitations and Denies dyspnea Resp Denies cough, Denies dyspnea and Denies wheezing GI Denies abdominal pain, Denies constipation, Denies dysphagia, Denies heartburn, Denies diarrhea, Denies nausea, Denies odynophagia and Denies vomiting Reports erectile dysfunction, Denies dysuria, Denies urinary frequency and Denies urinary incontinence Musc Reports as per HPI, Reports back pain (over the lower back - chronic), Denies neck pain and Denies radiating pain into limb Skin/Breast Denies rash Neuro Denies dizziness and Denies headache(s) Endo Reports fatigue and Denies palpitations Aller/Immun Denies wheezing Physical exam (Primary Care) Vital Signs: Last Vital Signs Pulse 86 05/05/24 14:35 BP 148/72 H 05/05/24 14:35 Pulse Ox 98 05/05/24 14:35 Oxygen Delivery Method Room Air 05/05/24 14:35 BMI result Body Mass Index 32.5 Tobacco/Smoking Status: Tobacco use Status Tobacco use date assessed 02/25/24 05/05/24 14:39 Patient Tobacco Use Status Former Tobacco user 05/05/24 14:39 Tobacco use type Cigarette 05/05/24 14:39 e-Cigarette/Vaping Use Never Used 05/05/24 14:39 PHQ-9: PHQ-9 Score PHQ-9: Total score 7 05/05/24 15:18 Depression Screening Interpretation: Positive Depression Screening Follow-up: Existing condition Thrive Assessment: Date of Thrive Assessment Date Thrive assessed 12/31/23 05/05/24 14:39 Const General: no acute distress and alert HENMT Ears: TM's normal bilaterally and EAC's normal Throat: Yes posterior oropharynx normal and Yes tonsils normal (no TP congestion) Neck Neck: Yes no lymphadenopathy and Yes supple Thyroid: Thyroid normal Resp Auscultation: clear to auscultation bilaterally, no rales and no wheezes Cardio Rate: regular rate Rhythm: regular rhythm Heart sounds: no murmurs GI Palpation (GI): Soft to palpation and nontender Auscultation: normal bowel sounds General: Yes no CVA tenderness Back/Spine/Pelvis Back: no CVA tenderness Thoracic/Lumbar Spine: lumbar spinal tenderness Skin Rashes: no rashes Extrem General: Yes no clubbing, cyanosis or edema Results AMB Hemoglobin A1c AMB Hemoglobin A1c 6.4 % Last Edit by Peace Toussaint CMA on 05/05/24 15:18 Results Reviewed Results Reviewed: Laboratory Last Values Hgb A1c (Clinic) 6.4 % (4.0-6.0) H 05/05/24 15:18 Laboratory Tests 04/06/24 05/05/24 06:29 15:18 WBC 5.3 Hgb 14.5 Hct 41.8 L Plt Count 200 Sodium 141 Potassium 3.9 Creatinine 0.95 Estimated GFR > 60 Fasting Glucose 156 H Hgb A1c (Clinic) 6.4 H Calcium 9.0 Total Bilirubin 1.8 H AST 21 ALT 32 Triglycerides 211 H Cholesterol 120 LDL Cholesterol, Calc 46 HDL Cholesterol 32 L Assessment and Plan Assessment & Plan (1) Lumbar disc herniation with radiculopathy: Comment: S/P left L3-L4 lumbar laminotomy Code(s): M51.16 - Intervertebral disc disorders with radiculopathy, lumbar region Plan: S/P left L3-L4 laminotomy/microdiscectomy a couple of months ago on 02/15/[address] Bailey at [facility] He is current stay still going to physical therapy for his lower back Reinforced activity and weight-lifting restrictions to avoid aggravating his lower back Follow up with neurosurgery as scheduled (2) Mixed hyperlipidemia: Code(s): E78.2 - Mixed hyperlipidemia Plan: Results of his labs done a few weeks ago reviewed and discussed with patient Reinforced low cholesterol diet Continue Atorvastatin 40 mg QD Will recheck his labs and fasting lipids in 4 months for follow up (3) Elevated LFTs: Code(s): R79.89 - Other specified abnormal findings of blood chemistry Plan: Improved and have remained normal on his recent labs - was most likely due to hepatosteatosis Abdominal US done back in February 2022 revealed (+) mild hepatomegaly and mild splenomegaly; hepatitis screen came back negative Will continue to monitor his LFTs regularly (4) COPD (chronic obstructive pulmonary disease): Code(s): J44.9 - Chronic obstructive pulmonary disease, unspecified Qualifiers: COPD type: unspecified COPD Qualified Code(s): J44.9 - Chronic obstructive pulmonary disease, unspecified Plan: Continue Breo Ellipta 100-25 mcg 1 inhalation QD and Albuterol HFA 1 to 2 inhalations Q 6 hours PRN (5) GERD without esophagitis: Code(s): K21.9 - Gastro-esophageal reflux disease without esophagitis Plan: Dietary restrictions reinforced Continue Pantoprazole 40 mg QD (6) Impaired fasting glucose: Code(s): R73.01 - Impaired fasting glucose Plan: His in-office HgbA1c done today is at 6.4%; HgbA1c was at 6.1% back in December 2023 Reinforced low calorie/low carb diet (7) Erectile dysfunction: Code(s): N52.9 - Male erectile dysfunction, unspecified Qualifiers: Erectile dysfunction type: unspecified Qualified Code(s): N52.9 - Male erectile dysfunction, unspecified Plan: Continue Sildenafil 50 mg QD PRN (8) Benign prostatic hyperplasia with nocturia: Code(s): N40.1 - Benign prostatic hyperplasia with lower urinary tract symptoms; R35.1 - Nocturia Plan: Continue Tamsulosin 0.4 mg Q HS - states that Rx has helped with his symptoms somewhat (9) Insomnia: Code(s): G47.00 - Insomnia, unspecified Qualifiers: Insomnia type: unspecified Qualified Code(s): G47.00 - Insomnia, unspecified Plan: Sleep hygiene reinforced Continue Trazodone 50 mg Q HS PRN (10) Obesity (BMI 30-39.9): Code(s): E66.9 - Obesity, unspecified Plan: Reinforced diet; exercise and weight loss are currently not practical due to his physical issues Plan Follow up in 4 months Orders: Orders Complete Blood Count Auto Diff 4 Months D64.9 - Anemia, unspecified Comprehensive [place]. Panel Fast 4 Months E78.00 - Pure hypercholesterolemia, unspecified Lipid Panel 4 Months E78.00 - Pure hypercholesterolemia, unspecified UA CC w/rflx Micro + Cult 4 Months R30.0 - Dysuria Hemoglobin A1c 4 Months R73.01 - Impaired fasting glucose Vitamin B12 and Folate 4 Months E53.8 - Deficiency of other specified B group vitamins AMB Hemoglobin A1c 05/05/24 Z13.9 - Encounter for screening, unspecified Medications: New fluocinolone acetonide oil 0.01% 5 drps otic (ear) left BID PRN 20 mL 1RF ear itching 7 days Refilled sildenafil administer 30 minutes to 4 hours before activity 50 mg PO DAILY PRN 10 tabs 2RF sexual activity 30 days Coding Level of Care Code Est Pt Level 4 (14596) Complex EM visit Add On G2211 Diagnoses Lumbar disc herniation with radiculopathy M51.16 Mixed hyperlipidemia E78.2 Elevated LFTs R79.89 Chronic obstructive pulmonary disease, unspecified COPD type J44.9 COPD type: unspecified COPD GERD without esophagitis K21.9 Impaired fasting glucose R73.01 Erectile dysfunction, unspecified erectile dysfunction type N52.9 Erectile dysfunction type: unspecified Benign prostatic hyperplasia with nocturia N40.1; R35.1 Insomnia, unspecified type G47.00 Insomnia type: unspecified Obesity (BMI 30-39.9) E66.9
== END 2024-05-05 15:21 | disposition home or self-care (01) ==
PROVIDERS: PCP Internal Medicine; Visit Provider Internal Medicine
DX: M51.16 Intervertebral disc disorders with radiculopathy, lumbar region (principal); E78.2 Mixed hyperlipidemia; R73.01 Impaired fasting glucose; R74.01 Elevation of levels of liver transaminase levels
CPT/HCPCS: 83036; 99214; G2211

== ENCOUNTER 2024-05-26 08:51 | Outpatient (AMB) | payer MEDICARE, SELFPAY ==
--- NOTE | 2024-05-26 08:55 | MHC.OFFWIV ---
Intake Vital Signs 05/26/24 08:56 Height 6 ft 2 in Weight 252 lb BMI 32.4 BP 176/96 H Blood Pressure Location Lt brachial Position Sitting Pulse 90 Pulse Source Pulse Oximeter Temp 98.2 F Temp Source Oral Pulse Oximetry (%) 94 Oxygen Delivery Method Room Air Intake Visit Reasons: EP ?Bronchitis Intake Note: pt c/o Productive cough, sore throat, head pressure. ? bronchitis. Started last Saturday Patient Tobacco Use Status: Former Tobacco user Allergies No Known Allergies Allergy (Verified 05/26/24 08:58) Do you need a note to return to daycare/school/sports/work: No HPI HPI Comments History of Present Illness Details 69 y/o male patient who presents to the walk in clinic with c/o cough since Saturday. Reports chest tightness and SOB. Denies fevers, chills, nausea or vomiting. [facility] Medical History COPD (chronic obstructive pulmonary disease) Lumbar disc herniation with radiculopathy Impaired fasting glucose Obesity (BMI 30-39.9) Pure hypercholesterolemia GERD without esophagitis Insomnia Hyperlipidemia Surgical History Hx of decompressive lumbar laminectomy S/P cardiac catheterization (~06/26/22) History of neck surgery History of colonoscopy History of thumb surgery History of left knee surgery Family History Father Colon cancer Mother Heart failure Brother Lung cancer Prostate cancer Brother Stroke Brother In good health Daughter In good health Social History Housing: Apartment Alcohol intake: former Patient Tobacco Use Status: Former Tobacco user Tobacco use type: Cigarette Years Smoked: stopped 23 years ago e-Cigarette/Vaping Use: Never Used Second Hand Smoke Exposure: Yes service: No Current occupational status: employed Cognitive needs: No Hearing needs: No Vision needs: Yes (glasses) Review of Systems Const All systems reviewed & are unremarkable except as noted in HPI and below Physical Exam Vital Signs: Last Vital Signs Temp 98.2 F 05/26/24 08:56 Pulse 90 05/26/24 08:56 BP 176/96 H 05/26/24 08:56 Pulse Ox 94 05/26/24 08:56 Oxygen Delivery Method Room Air 05/26/24 08:56 BMI result Body Mass Index 32.4 Const General: cooperative and comfortable Nutritional Appearance: obese Orientation/consciousness: patient oriented x3 HEENT Head: Yes normocephalic Ears: external ears normal and TM's normal bilaterally General nose exam: Normal nasal mucous membranes and turbinates present Face and sinus: Yes sinuses nontender Mouth: moist mucous membranes Resp Effort & Inspection: normal respiratory effort, able to speak in complete sentences, no audible wheezes and Actively coughing Auscultation: clear to auscultation bilaterally, no crackles, no rales, no rhonchi and no wheezes Cardio Heart sounds: S1 normal heart sound present and S2 normal heart sound present Neuro General: patient oriented x3 Assessment & Plan Assessment & Plan (1) Cough in adult: Code(s): R05.9 - Cough, unspecified Plan: Cough OTC remedies Rest Acetaminophen for pain relief. Ordered Chest Xray. Orders: Orders XR chest 2V Today R05.9 - Cough, unspecified Medications: New azithromycin 500 mg PO DAILY 3 days 3 tabs 0RF R05.9 - Cough, unspecified benzonatate 100 mg PO TID 90 caps 0RF R05.9 - Cough, unspecified dextromethorphan polistirex ER (Delsym 12 hour) 10 mL PO Q12H 89 mL 0RF R05.9 - Cough, unspecified Coding Level of Care Code Est Pt Level 4 (77575) Diagnoses Cough in adult R05.9 Time Spent (min) 20
[2024-05-26 08:56] VITALS: BP 176/96; PULSE 90; TEMP 36.8; O2SAT 94; BMI 32.4
== END 2024-05-26 10:23 | disposition home or self-care (01) ==
PROVIDERS: PCP Internal Medicine; Visit Provider Nurse Practitioner Family
DX: R05.9 Cough, unspecified (principal)
CPT/HCPCS: 99214

== ENCOUNTER 2024-05-26 09:42 | Outpatient (REF) | payer MEDICARE, SELFPAY ==
--- NOTE | ~2024-05-26 | XR_ITS ---
EXAMINATION: XR CHEST CLINICAL INFORMATION: Cough. COMPARISON: Chest radiograph dated 12/14/2021. TECHNIQUE: PA and lateral views of the chest. FINDINGS: The lungs are clear. The cardiomediastinal silhouette is normal in size. There is no pleural effusion or pneumothorax. No acute osseous abnormality. XR/XR chest 2V IMPRESSION: No acute cardiopulmonary findings. Electronically signed by: Pk Renteria MD 05/26/2024 11:46 AM EDT
== END 2024-05-26 09:43 | disposition home or self-care (01) ==
LOC: HO.HMGCX 09:42
PROVIDERS: PCP Internal Medicine; Visit Provider Nurse Practitioner Family
DX: R05.9 Cough, unspecified (principal)
CPT/HCPCS: 71046

== ENCOUNTER 2024-09-04 06:12 | Outpatient (REF) | payer MEDICARE, SELFPAY ==
[2024-09-04 06:24] LABS: MANUAL DIFF FLAG NO
[2024-09-04 07:50] LABS: Basophils Percent Auto 0.5 % (0-2); Eosinophils Absolute Auto 0.2 X10*3/uL (0.0-0.4); Eosinophils Percent Auto 2.5 % (0-4); Hematocrit 46.4 % (42.0-52.0); Hemoglobin 15.5 g/dl (14.0-18.0); Imm Gran Abs Auto 0.03 X10*3/uL (0.00-0.03); Imm Gran Pct Auto 0.4 % (0.0-0.4); Lymphocytes Absolute Auto 1.9 X10*3/uL (1.2-4.9); Lymphocytes Percent Auto 23.5 % (20-40); Mean Corpuscular HGB Conc 33.4 g/dl (31.0-36.0); Mean Corpuscular Hemoglobin 32.1 pg (27.0-33.0); Mean Corpuscular Volume 96.1 fL (80.0-98.0); Mean Platelet Volume 9.2 fL (9.4-12.4); Monocytes Absolute Auto 0.6 X10*3/uL (0.1-1.2); Monocytes Percent Auto 7.6 % (2-11); Neutrophils Absolute Auto 5.2 x10*3/uL (2.0-8.3); Neutrophils Percent Auto 65.5 % (45-73); Platelet Count 225 X10*3/uL (160-400); Red Blood Count 4.83 X10*6/uL (4.60-5.80); Red Cell Distribution Width 12.2 % (11.0-16.0); White Blood Count 7.9 X10*3/uL (4.8-10.8)
[2024-09-04 07:54] LABS: Appearance Urine Clear; Color Urine Yellow; Glucose Urine UA Negative (Negative); Leukocyte Esterase Urine Negative (Negative); Nitrite Urine Negative (Negative); PH 5.5 (5.0-9.0); Urine Blood Negative (Negative); Urine Ketones Negative (Negative); Urine Protein Negative (Neg-Trace)
[2024-09-04 08:01] LABS: Estimated Average Glucose 137 mg/dL; Hemoglobin A1C 184.2214 umol/L; Hemoglobin A1c % 6.4 % (<6.0)
[2024-09-04 08:40] LABS: Alanine Aminotransferase 51 U/L (0-40); Albumin Level 4.3 g/dL (3.5-5.0); Alkaline Phosphatase 48 U/L (39-117); Anion Gap 14 (12-20); Aspartate Amino Transferase 39 U/L (5-37); Blood Urea Nitrogen 14 mg/dL (9-16); Calcium 9.1 mg/dL (8.4-10.2); Carbon Dioxide 26 mmol/L (22-29); Chloride 104 mmol/L (96-108); Cholesterol 121 mg/dL (<200); Estimated Glomerular Filt Rate 56; Glucose Fasting 144 mg/dL (60-99); HDL Cholesterol 34 mg/dL (>40); LDL Cholesterol Calculated 56 mg/dL (<100); Potassium 4.2 mmol/L (3.3-5.1); Sodium 140 mmol/L (135-145); Total Protein 7.3 g/dL (6.5-8.0); Triglycerides 157 mg/dL (<150)
[2024-09-04 09:01] LABS: Folate 11.7 ng/mL (> or = 4.0); Vitamin B12 1159 pg/mL (200-900)
== END 2024-09-04 06:13 | disposition home or self-care (01) ==
LOC: HO.LAB 06:12
PROVIDERS: PCP Internal Medicine; Visit Provider Internal Medicine
DX: D64.9 Anemia, unspecified (principal); E78.00 Pure hypercholesterolemia, unspecified; R30.0 Dysuria; R73.01 Impaired fasting glucose; E53.8 Deficiency of other specified B group vitamins
CPT/HCPCS: 36415; 80053; 80061; 81003; 82607; 82746; 83036; 85025

== ENCOUNTER 2024-09-07 15:15 | Outpatient (AMB) | payer MEDICARE, SELFPAY ==
[2024-09-07 15:20] VITALS: BP 126/82; PULSE 70; O2SAT 94; BMI 32.5
--- NOTE | 2024-09-07 15:20 | MHC.PC.OV ---
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 Accompanied by: Self / Same As Patient Allergies No Known Allergies Allergy (Verified 09/07/24 15:28) Medication List - Last Reconciled 09/07/24 by Germán Bradford MD albuterol sulfate 90 mcg/actuation 2 puffs inhalation Q6H PRN amlodipine 2.5 mg PO BID 90 days aspirin 81 mg PO DAILY atorvastatin 40 mg PO DAILY benzonatate 100 mg PO TID cetirizine 10 mg PO DAILY dextromethorphan polistirex ER (Delsym 12 hour) 10 mL PO Q12H fluocinolone acetonide oil 0.01% 5 drps otic (ear) left BID PRN 7 days omeprazole 20 mg PO DAILY sildenafil 50 mg PO DAILY PRN 30 days tamsulosin 0.4 mg PO BEDTIME 90 days trazodone 50 mg PO BEDTIME PRN 90 days triamcinolone acetonide 0.1% 1 appl topical BID PRN Tobacco use date assessed: 09/07/24 Fall risk assessment: No Falls in past year Last assessed Fall Risk: 09/07/24 Dental Screening Dental Screen Date: 09/07/24 Did you have a dental visit in the last 12 months?: Yes Did you have a dental problem in the last 6 months where you did not have access to dental care?: No Was dental information given to patient?: Patient has dentist HPI Hyperlipidemia, HTN, IFG, Lumbar DDD HPI Details Patient comes in today for his follow up visit States that he feels okay except for his lower back, which has been bothering him again for the past couple of months and he feels that it is again getting worse as the pain now radiates down into his right lower extremity often He had back surgery (left decompressive lumbar laminectomy) done at [facility] in February 2024 with (+) relief for a few months He denies any recent injury or trauma to his lower back He denies any headaches or dizziness Denies any chest pains, no increased SOB although he still has recurrent cough and occasional chest tightness as well as a frequent sensation of phlegm pooling in his throat States that he uses his Albuterol inhaler as needed with (+) temporary relief He was supposed to be on Breo Ellipta but states that he never got the Rx as he thinks that this was because his insurance did not cover the Rx when it was prescribed for him a few months ago No nausea/vomiting, no abdominal pain No change in bowel habits noted He had his follow up labs done a few days ago - to discuss his results [facility] Medical History COPD (chronic obstructive pulmonary disease) Lumbar disc herniation with radiculopathy Impaired fasting glucose Obesity (BMI 30-39.9) Pure hypercholesterolemia GERD without esophagitis Insomnia Hyperlipidemia Surgical History Hx of decompressive lumbar laminectomy S/P cardiac catheterization (~06/26/22) History of neck surgery History of colonoscopy History of thumb surgery History of left knee surgery Family History Father Colon cancer Mother Heart failure Brother Lung cancer Prostate cancer Brother Stroke Brother In good health Daughter In good health Social History Housing: Apartment Alcohol intake: former Patient Tobacco Use Status: Former Tobacco user Tobacco use type: Cigarette Years Smoked: stopped 23 years ago e-Cigarette/Vaping Use: Never Used Second Hand Smoke Exposure: Yes service: No Current occupational status: employed Cognitive needs: No Hearing needs: No Vision needs: Yes (glasses) Questionnaire PHQ-9 Over the last 2 weeks, how often have you been bothered by any of the following problems? 1. Little interest or pleasure in doing things: not at all 2. Feeling down, depressed, or hopeless: several days 3. Trouble falling or staying asleep, or sleeping too much: not at all 4. Feeling tired or having little energy: nearly every day 5. Poor appetite or overeating: not at all 6. Feeling bad about yourself - or that you are a failure or have let yourself or your family down: not at all 7. Trouble concentrating on things, such as reading the newspaper or watching television: nearly every day 8. Moving or speaking so slowly that other people could have noticed. Or the opposite - being so fidgety or restless that you have been moving around a lot more than usual: not at all 9. Thoughts that you would be better off or of hurting yourself in some way: not at all Total score: 7 Depression Screening Interpretation: Positive Depression Screening Follow-up: Existing condition and Follow-up Visit Requested Depression Screening Done: Yes 74037 - PHQ-9 Billing: Yes Source: Developed by Drs. Erickson Mathew, Fannie Solorzano, Rusty Turner and colleagues, with an educational rachel from [employer]. Thrive Questionnaire Date Thrive assessed: 09/07/24 I am a: Patient What is your living situation today?: I have a steady place to live Within the past 12 months, did the food you bought not last and you didn't have the money to get more?: Never true Within the past 12 months, did you worry whether your food would run out before you got money to buy more?: Never true Do you have trouble paying for medicines?: No Do you have trouble getting transportation to medical appointments?: No Do you have trouble paying your heating and electricity bill?: No Do you have trouble taking care of your child, family member or friend?: No Do you have trouble with day-to-day activities such as bathing, preparing meals, shopping, managing finances, etc.?: No Are you currently unemployed and looking for a job?: No Are you interested in more education?: No Please select the resources that you would like help with: None Currently or been in a relationship where the following occur: No concerns reported THRIVE Score: 0 AUDIT C Alcohol Use Questionnaire (AUDIT-C) 1. How often do you have a drink containing alcohol?: Never 3. How often do you have six or more drinks on one occasion?: Never Total Score: 0 Score Reviewed/Action Taken: Yes ARIAN-7 AMB Questionnaire ARIAN-7 Date ARIAN - 7 assessed: 09/07/24 Feeling nervous, anxious, or on edge: 0 = Not at all Not being able to stop or control worryin = Not at all Worrying too much about different things: 0 = Not at all Trouble relaxin = Not at all Being so restless that it is hard to sit still: 0 = Not at all Becoming easily annoyed or irritable: 0 = Not at all Feeling afraid as if something awful might happen: 0 = Not at all Total ARIAN-7 score (0-4 normal; 5-9 mild; 10-14 moderate; 15-21 severe): 0 Source: Developed by Drs. Erickson Mathew, Fannie Solorzano, Rusty Turner and colleagues, with an educational rachel from [employer]. Review of Systems Const Denies chills, Reports difficulty sleeping, Reports fatigue, Denies fever(s) and Denies headache(s) ENT Denies dysphagia, Denies dizziness, Denies otalgia, Denies headache(s), Denies neck pain, Denies odynophagia and Denies sore throat Card Denies chest pain, Denies palpitations and Reports dyspnea on exertion (mild) Resp Reports chest congestion (on and off), Reports cough (recurrent, often with sensation of phlegm in his throat), Denies hemoptysis, Denies pain with cough, Reports dyspnea on exertion (mild) and Denies wheezing GI Denies abdominal pain, Denies constipation, Denies dysphagia, Denies heartburn, Denies diarrhea, Denies nausea, Denies odynophagia and Denies vomiting Reports erectile dysfunction, Denies dysuria, Denies urinary frequency and Denies urinary incontinence Musc Reports back pain (over the lower back (chronic) - increased lately), Denies neck pain and Reports radiating pain into limb (down into the right lower extremity - on and off) Skin/Breast Denies rash Neuro Denies dizziness and Denies headache(s) Endo Reports fatigue and Denies palpitations Aller/Immun Denies wheezing Physical exam (Primary Care) Vital Signs: Last Vital Signs Pulse 70 09/07/24 15:20 BP 126/82 09/07/24 15:20 Pulse Ox 94 09/07/24 15:20 Oxygen Delivery Method Room Air 09/07/24 15:20 BMI result Body Mass Index 32.5 Tobacco/Smoking Status: Tobacco use Status Tobacco use date assessed 09/07/24 09/07/24 15:27 Patient Tobacco Use Status Former Tobacco user 09/07/24 15:27 Tobacco use type Cigarette 09/07/24 15:27 e-Cigarette/Vaping Use Never Used 09/07/24 15:27 PHQ-9: PHQ-9 Score PHQ-9: Total score 7 09/07/24 15:27 Depression Screening Interpretation: Positive Depression Screening Follow-up: Existing condition and Follow-up Visit Requested Thrive Assessment: Date of Thrive Assessment Date Thrive assessed 09/07/24 09/07/24 15:27 Currently or been in a relationship where the following occur: No concerns reported Const General: no acute distress and alert HENMT Ears: TM's normal bilaterally and EAC's normal Throat: Yes posterior oropharynx normal and Yes tonsils normal (no TP congestion) Neck Neck: Yes no lymphadenopathy and Yes supple Thyroid: Thyroid normal Resp Auscultation: clear to auscultation bilaterally, no rales and no wheezes Cardio Rate: regular rate Rhythm: regular rhythm Heart sounds: no murmurs GI Palpation (GI): Soft to palpation and nontender Auscultation: normal bowel sounds General: Yes no CVA tenderness Back/Spine/Pelvis Back: no CVA tenderness Thoracic/Lumbar Spine: lumbar spinal tenderness and straight leg raise positive right Skin Rashes: no rashes Extrem General: Yes no clubbing, cyanosis or edema Results Reviewed Results Reviewed: Laboratory Tests 09/04/24 09/04/24 06:20 06:21 WBC 7.9 Hgb 15.5 Hct 46.4 Plt Count 225 Sodium 140 Potassium 4.2 Creatinine 1.27 Estimated GFR 56 Fasting Glucose 144 H Hemoglobin A1c % 6.4 H Calcium 9.1 Total Bilirubin 2.0 H AST 39 H ALT 51 H Triglycerides 157 H Cholesterol 121 LDL Cholesterol, Calc 56 HDL Cholesterol 34 L Vitamin B12 1159 H Folate 11.7 Ur Specific [place] 1.020 Urine Protein Negative Urine Glucose (UA) Negative Urine Blood Negative Urine Nitrite Negative Ur Leukocyte Esterase Negative Coding Level of Care Code Est Pt Level 4 (12688) Complex EM visit Add On G2211 Diagnoses Mixed hyperlipidemia E78.2 Elevated LFTs R79.89 Lumbar disc herniation with radiculopathy M51.16 Chronic obstructive pulmonary disease, unspecified COPD type J44.9 COPD type: unspecified COPD GERD without esophagitis K21.9 Impaired fasting glucose R73.01 Erectile dysfunction, unspecified erectile dysfunction type N52.9 Erectile dysfunction type: unspecified Benign prostatic hyperplasia with nocturia N40.1; R35.1 Insomnia, unspecified type G47.00 Insomnia type: unspecified Obesity (BMI 30-39.9) E66.9 Additional Codes PHQ-9 - 25398 - PHQ-9 Billing: Yes ([id number]) Assessment & Plan Assessment & Plan (1) Mixed hyperlipidemia: Code(s): E78.2 - Mixed hyperlipidemia Category: Medical Plan: Results of his labs done a few days ago reviewed and discussed with patient Reinforced low cholesterol diet Continue Atorvastatin 40 mg QD Will recheck his labs and fasting lipids in 4 months for follow up (2) Elevated LFTs: Code(s): R79.89 - Other specified abnormal findings of blood chemistry Category: Medical Plan: He is cautioned that his LFTs have increased significantly from previous - is most likely due to hepatosteatosis although he has not really gained much weight since his last visit Abdominal US done back in February 2022 revealed (+) mild hepatomegaly and mild splenomegaly; hepatitis screen came back negative He is also reminded to avoid taking any medication containing or including Acetaminophen or Tylenol as much as possible Will continue to monitor his LFTs regularly (3) Lumbar disc herniation with radiculopathy: Comment: S/P left L3-L4 lumbar laminotomy Code(s): M51.16 - Intervertebral disc disorders with radiculopathy, lumbar region Category: Medical Plan: S/P left L3-L4 laminotomy/microdiscectomy a few months ago on 02/15/[address] Bailey at [facility] States that his low back pain and left-sided radicular pains improved significantly with surgery and with physical therapy for a while but he has been experiencing increasing low back pain, with frequent radiation this time of the pain down his right leg States that he is scheduled to see neurosurgery at [facility] soon for further evaluation of his current symptoms and he is thinking that he might need to go for another surgery, this time on his right lower back Reinforced activity and weight-lifting restrictions to avoid aggravating his lower back Follow up with neurosurgery as scheduled (4) COPD (chronic obstructive pulmonary disease): Code(s): J44.9 - Chronic obstructive pulmonary disease, unspecified Category: Medical Qualifiers: COPD type: unspecified COPD Qualified Code(s): J44.9 - Chronic obstructive pulmonary disease, unspecified Plan: His COPD currently appears inadequately controlled, based on his description of his symptoms recently He was supposed to be on Breo Ellipta but he now states that he does not recall ever picking up the Rx - thinks that his insurance did not cover the Rx at the time and he has just been using his Albuterol HFA 1 to 2 inhalations Q 6 hours PRN Will try starting him on Advair HFA 115-21 mcg 1 inhalation BID to help control his COPD symptoms better May need to refer him to pulmonary for further management if his respiratory symptoms are still not adequately controlled on Adviar (5) GERD without esophagitis: Code(s): K21.9 - Gastro-esophageal reflux disease without esophagitis Category: Medical Plan: Dietary restrictions reinforced Continue Pantoprazole 40 mg QD (6) Impaired fasting glucose: Code(s): R73.01 - Impaired fasting glucose Category: Medical Plan: His HgbA1c remains unchanged at 6.4% on his labs done a few days ago; his in-office HgbA1c was also at 6.4% a few months ago Advised that a HgbA1c of 6.4% puts him right at the cut-off between borderline and actual diabetes and he should try to work on getting this lower again Reinforced diabetic diet (7) Erectile dysfunction: Code(s): N52.9 - Male erectile dysfunction, unspecified Category: Medical Qualifiers: Erectile dysfunction type: unspecified Qualified Code(s): N52.9 - Male erectile dysfunction, unspecified Plan: Continue Sildenafil 50 mg QD PRN (8) Benign prostatic hyperplasia with nocturia: Code(s): N40.1 - Benign prostatic hyperplasia with lower urinary tract symptoms; R35.1 - Nocturia Category: Medical Plan: Continue Tamsulosin 0.4 mg Q HS - states that Rx has helped with his symptoms somewhat (9) Insomnia: Code(s): G47.00 - Insomnia, unspecified Category: Medical Qualifiers: Insomnia type: unspecified Qualified Code(s): G47.00 - Insomnia, unspecified Plan: Sleep hygiene reinforced Continue Trazodone 50 mg Q HS PRN (10) Obesity (BMI 30-39.9): Code(s): E66.9 - Obesity, unspecified Category: Medical Plan: Reinforced diet; exercise and weight loss are currently not practical due to his lower back issues Plan Follow up in 4 months Orders: Orders Comprehensive [place]. Panel Fast 4 Months E78.00 - Pure hypercholesterolemia, unspecified Lipid Panel 4 Months E78.00 - Pure hypercholesterolemia, unspecified Hemoglobin A1c 4 Months R73.01 - Impaired fasting glucose Vitamin B12 and Folate 4 Months E53.8 - Deficiency of other specified B group vitamins Complete Blood Count Auto Diff 4 Months D64.9 - Anemia, unspecified TSH reflex Free T4 4 Months E78.00 - Pure hypercholesterolemia, unspecified UA CC w/rflx Micro + Cult 4 Months R30.0 - Dysuria Vitamin D 25-OH Total 4 Months E55.9 - Vitamin D deficiency, unspecified Medications: New Advair HFA 115-21 mcg/actuation (fluticasone propion-salmeterol) 1 puff inhalation BID 12 grams 2RF NS
== END 2024-09-07 15:47 | disposition home or self-care (01) ==
PROVIDERS: PCP Internal Medicine; Visit Provider Internal Medicine
DX: J44.9 Chronic obstructive pulmonary disease, unspecified (principal); E78.2 Mixed hyperlipidemia; E66.9 Obesity, unspecified; Z68.32 Body mass index [BMI] 32.0-32.9, adult; M51.16 Intervertebral disc disorders with radiculopathy, lumbar region; K21.9 Gastro-esophageal reflux disease without esophagitis; R73.01 Impaired fasting glucose; N52.9 Male erectile dysfunction, unspecified; N40.1 Benign prostatic hyperplasia with lower urinary tract symptoms; R35.1 Nocturia; G47.00 Insomnia, unspecified

== ENCOUNTER → 2024-09-07 15:15 | Outpatient (BNVA) | payer MEDICARE, SELFPAY | PROVIDERS: PCP Internal Medicine; Visit Provider Internal Medicine | DX: E78.2 Mixed hyperlipidemia (principal); R79.89 Other specified abnormal findings of blood chemistry; M51.16 Intervertebral disc disorders with radiculopathy, lumbar region; J44.9 Chronic obstructive pulmonary disease, unspecified; K21.9 Gastro-esophageal reflux disease without esophagitis; R73.01 Impaired fasting glucose; N52.9 Male erectile dysfunction, unspecified; N40.1 Benign prostatic hyperplasia with lower urinary tract symptoms; R35.1 Nocturia; G47.00 Insomnia, unspecified; E66.9 Obesity, unspecified | CPT/HCPCS: 96127; 99212 ==

== ENCOUNTER 2024-10-05 13:15 | Outpatient (AMB) | payer MEDICARE, SELFPAY ==
[2024-10-05 13:18] VITALS: BP 120/80; PULSE 66; BMI 33.1
--- NOTE | 2024-10-05 13:18 | A.OFFVIS_ITS ---
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 Allergies No Known Allergies Allergy (Verified 09/07/24 15:28) Medication List - Last Reconciled 10/05/24 by Steve Mullen MD Advair HFA 115-21 mcg/actuation (fluticasone propion-salmeterol) 1 puff inhalation BID NS albuterol sulfate 90 mcg/actuation 2 puffs inhalation Q6H PRN amlodipine 2.5 mg PO BID 90 days aspirin 81 mg PO DAILY atorvastatin 40 mg PO DAILY benzonatate 100 mg PO TID cetirizine 10 mg PO DAILY dextromethorphan polistirex ER (Delsym 12 hour) 10 mL PO Q12H PRN fluocinolone acetonide oil 0.01% 5 drps otic (ear) left BID PRN 7 days omeprazole 20 mg PO DAILY sildenafil 50 mg PO DAILY PRN 30 days tamsulosin 0.4 mg PO BEDTIME 90 days trazodone 50 mg PO BEDTIME PRN 90 days triamcinolone acetonide 0.1% 1 appl topical BID PRN HPI Comments Details: Jah comes for follow-up. Denies any new cardiac symptoms. He is currently limited because of sciatic pain down his right lower extremity. Scheduled to undergo MRI in near future and see spine/Neurosurgery in the future. Denies any exertional chest pain. Does have daytime fatigue and somnolence and wakes up multiple times at night. Although he said he has not been able to complete a sleep study. Denies any prolonged palpitations. Denies any worsening shortness of breath, orthopnea, PND. Takes all his medications. Last LDL well optimized at 56 mg/dL. [facility] Medical History COPD (chronic obstructive pulmonary disease) Lumbar disc herniation with radiculopathy Impaired fasting glucose Obesity (BMI 30-39.9) Pure hypercholesterolemia GERD without esophagitis Insomnia Hyperlipidemia Surgical History Hx of decompressive lumbar laminectomy S/P cardiac catheterization (~06/26/22) History of neck surgery History of colonoscopy History of thumb surgery History of left knee surgery Family History Father Colon cancer Mother Heart failure Brother Lung cancer Prostate cancer Brother Stroke Brother In good health Daughter In good health Social History Housing: Apartment Alcohol intake: former Patient Tobacco Use Status: Former Tobacco user Tobacco use type: Cigarette Years Smoked: stopped 23 years ago e-Cigarette/Vaping Use: Never Used Second Hand Smoke Exposure: Yes service: No Current occupational status: employed Cognitive needs: No Hearing needs: No Vision needs: Yes (glasses) Review of Systems Const Denies chills, Denies fatigue, Denies fever(s), Denies frequent falls, Denies weakness, Denies weight gain and Denies weight loss ENT Denies dizziness Card Denies chest pain, Denies leg edema, Denies lightheadedness, Denies palpitations, Denies dyspnea, Denies dyspnea on exertion, Denies orthopnea and Denies other (loss of consciousness) Resp Denies cough, Denies dyspnea and Denies dyspnea on exertion GI Denies hematochezia and Denies change in stool character Musc Denies abnormal gait, Denies muscle weakness, Denies numbness, Denies radiating pain into limb and Denies tingling Neuro Denies Abnormal speech present, Denies abnormal gait, Denies dizziness, Denies frequent falls, Denies numbness, Denies tingling and Denies weakness Endo Denies fatigue and Denies palpitations Physical Exam Vital Signs: Last Vital Signs Pulse 66 10/05/24 13:18 BP 120/80 10/05/24 13:18 BMI result Body Mass Index 33.1 Const General: cooperative, comfortable, no acute distress, well developed, alert and awake Nutritional Appearance: overweight Orientation/consciousness: patient oriented x3 Limitations: no limitations Neck Neck: Yes trachea midline, Yes supple and Yes no JVD Chest Chest palpation & inspection: normal inspection of the chest Resp Effort & Inspection: normal respiratory effort Auscultation: clear to auscultation bilaterally Cardio Jugular venous distension: no JVD Palpation: normal PMI Rate: regular rate Rhythm: regular rhythm Heart sounds: S1 normal heart sound present, S2 normal heart sound present, no click, no gallops, no murmurs and no rubs Bruits: no carotid bruits Neuro General: patient oriented x3 and no focal motor deficits Speech: No Abnormal speech present Psych Appearance: grossly normal Office Procedures EKG Details: EKG shows normal sinus rhythm with poor R-wave progression with left axis deviation [id number], Complete Assessment & Plan Assessment & Plan (1) CAD (coronary artery disease): Code(s): I25.10 - Atherosclerotic heart disease of teller coronary artery without angina pectoris Category: Medical Plan: Nonobstructive CAD by cardiac catheterization couple years ago. No recurrent symptoms of chest pain or symptoms suggestive of myocardial ischemia. At this point time continued medical therapy should be pursued. Lifelong aspirin therapy is advised. Recommend aggressive blood pressure control. Continue high-intensity statin therapy. LDL is well optimized at this point time. Advised to call me with any new symptoms. (2) Mixed hyperlipidemia: Code(s): E78.2 - Mixed hyperlipidemia Category: Medical Plan: Hyperlipidemia with well optimized LDL on current high-intensity statin therapy. Triglycerides improved as well. Continue to participate in lifestyle modification with weight loss. Continue increase exercise activity. Pathophysiology of atherosclerosis was discussed importance of therapy was discussed. He understands agrees. (3) HTN (hypertension): Code(s): I10 - Essential (primary) hypertension Category: Medical Plan: Hypertension with well optimized blood pressure on current amlodipine therapy. Continue the same. Importance of good blood pressure control was discussed advised to monitor blood pressure intermittently at home. Will follow up in the clinic in 1 year's time, sooner p.r.n.. Thank you for allowing me to partake in his care Medications: Changed From dextromethorphan polistirex ER (Delsym 12 hour) 10 mL PO Q12H 89 mL 0RF R05.9 - Cough, unspecified To dextromethorphan polistirex ER (Delsym 12 hour) 10 mL PO Q12H PRN R05.9 - Cough, unspecified Coding Level of Care Code Est Pt Level 4 (27719) Complex EM visit Add On G2211 Diagnoses CAD (coronary artery disease) I25.10 Mixed hyperlipidemia E78.2 HTN (hypertension) I10 CPT Codes EKG - CPT: 97966-[id number], Complete ([id number])
== END 2024-10-05 13:41 | disposition home or self-care (01) ==
PROVIDERS: PCP Internal Medicine; Visit Provider Internal Medicine Cardiovascular Disease
DX: I25.10 Atherosclerotic heart disease of native coronary artery without angina pectoris (principal); E78.2 Mixed hyperlipidemia; I10 Essential (primary) hypertension
CPT/HCPCS: 93010; 99214; G2211

== ENCOUNTER → 2024-10-05 13:15 | Outpatient (BNVA) | payer MEDICARE, SELFPAY | PROVIDERS: PCP Internal Medicine; Visit Provider Internal Medicine Cardiovascular Disease | DX: I25.10 Atherosclerotic heart disease of native coronary artery without angina pectoris (principal); I10 Essential (primary) hypertension; E78.2 Mixed hyperlipidemia; R94.31 Abnormal electrocardiogram [ECG] [EKG] | CPT/HCPCS: 93005; 99212 ==

== ENCOUNTER 2025-01-06 14:21 | Outpatient (AMB) | payer MEDICARE, SELFPAY ==
--- NOTE | 2025-01-06 14:32 | A.OFFPC_ITS ---
Vital Signs 01/06/25 14:33 01/06/25 14:51 Height 6 ft 2 in Weight 254 lb BMI 32.6 BP 154/62 H 136/76 Blood Pressure Location Lt brachial Lt brachial Position Sitting Sitting Pulse 69 Pulse Source Pulse Oximeter Pulse Oximetry (%) 94 Oxygen Delivery Method Room Air Intake Visit Reasons: 4mth f/u Show Operations Supervisor Required: No Accompanied by: Self / Same As Patient Allergies No Known Allergies Allergy (Verified 01/06/25 14:46) Medication List - Last Reconciled 01/06/25 by Germán Bradford MD Advair HFA 115-21 mcg/actuation (fluticasone propion-salmeterol) 1 puff inhalation BID NS albuterol sulfate 90 mcg/actuation 2 puffs inhalation Q6H PRN amlodipine 2.5 mg PO BID aspirin 81 mg PO DAILY atorvastatin 40 mg PO DAILY benzonatate 100 mg PO TID cetirizine 10 mg PO DAILY dextromethorphan polistirex ER (Delsym 12 hour) 10 mL PO Q12H PRN fluocinolone acetonide oil 0.01% 5 drps otic (ear) left BID PRN 7 days omeprazole 20 mg PO DAILY sildenafil 50 mg PO DAILY PRN 30 days tamsulosin 0.4 mg PO BEDTIME 90 days trazodone 50 mg PO BEDTIME PRN 90 days triamcinolone acetonide 0.1% 1 appl topical BID PRN Tobacco use date assessed: 01/06/25 Fall risk assessment: 2 + Falls in past year Last assessed Fall Risk: 01/06/25 Dental Screening Dental Screen Date: 01/06/25 Did you have a dental visit in the last 12 months?: Yes Did you have a dental problem in the last 6 months where you did not have access to dental care?: No Was dental information given to patient?: Patient has dentist HPI 4mth f/u HPI Details Patient comes in today for his follow-up visit States that he has been experiencing frequent chest tightness lately as he has not been able to get his Advair diskus inhaler refilled due to cost - states that he has to shell out a large amount for the co-pay on this Rx Patient adds that he has also been experiencing increased low back pain lately Recalls that he had an MRI of the lumbar spine done at [facility] a couple of months ago that revealed (+) cyst along the lumbar spine but there were no significant disc herniation or cord compression/impingement noted so no surgical intervention was recommended at the time He denies any headaches or dizziness Denies any chest pains; states that his chest still feels tight at times and he's had some on and off coughing lately No nausea/vomiting, no abdominal pain No change in bowel habits noted He was not able to get his follow up labs done prior to his appointment today [facility] Medical History COPD (chronic obstructive pulmonary disease) Lumbar disc herniation with radiculopathy Impaired fasting glucose Obesity (BMI 30-39.9) Pure hypercholesterolemia GERD without esophagitis Insomnia Hyperlipidemia Surgical History Hx of decompressive lumbar laminectomy S/P cardiac catheterization (~06/26/22) History of neck surgery History of colonoscopy History of thumb surgery History of left knee surgery Family History Father Colon cancer Mother Heart failure Brother Lung cancer Prostate cancer Brother Stroke Brother In good health Daughter In good health Social History Housing: Apartment Alcohol intake: former Patient Tobacco Use Status: Former Tobacco user Tobacco use type: Cigarette Years Smoked: stopped 23 years ago e-Cigarette/Vaping Use: Never Used Second Hand Smoke Exposure: Yes service: No Current occupational status: employed Cognitive needs: No Hearing needs: No Vision needs: Yes (glasses) Questionnaire PHQ-9 Over the last 2 weeks, how often have you been bothered by any of the following problems? 1. Little interest or pleasure in doing things: not at all 2. Feeling down, depressed, or hopeless: several days 3. Trouble falling or staying asleep, or sleeping too much: not at all 4. Feeling tired or having little energy: nearly every day 5. Poor appetite or overeating: not at all 6. Feeling bad about yourself - or that you are a failure or have let yourself or your family down: not at all 7. Trouble concentrating on things, such as reading the newspaper or watching television: nearly every day 8. Moving or speaking so slowly that other people could have noticed. Or the opposite - being so fidgety or restless that you have been moving around a lot more than usual: not at all 9. Thoughts that you would be better off or of hurting yourself in some way: not at all Total score: 7 Depression Screening Interpretation: Positive Depression Screening Follow-up: Existing condition and Follow-up Visit Requested Depression Screening Done: Yes 76932 - PHQ-9 Billing: Yes Source: Developed by Drs. Erickson Mathew, Fannie Solorzano, Rusty Turner and colleagues, with an educational rachel from [id number]. Thrive Questionnaire Date Thrive assessed: 01/06/25 I am a: Patient What is your living situation today?: I have a steady place to live Within the past 12 months, did the food you bought not last and you didn't have the money to get more?: Never true Within the past 12 months, did you worry whether your food would run out before you got money to buy more?: Never true Do you have trouble paying for medicines?: No Do you have trouble getting transportation to medical appointments?: No Do you have trouble paying your heating and electricity bill?: No Do you have trouble taking care of your child, family member or friend?: No Do you have trouble with day-to-day activities such as bathing, preparing meals, shopping, managing finances, etc.?: No Are you currently unemployed and looking for a job?: No Are you interested in more education?: No Please select the resources that you would like help with: None Currently or been in a relationship where the following occur: No concerns reported THRIVE Score: 0 AUDIT C Alcohol Use Questionnaire (AUDIT-C) 1. How often do you have a drink containing alcohol?: Never 3. How often do you have six or more drinks on one occasion?: Never Total Score: 0 Score Reviewed/Action Taken: Yes ARIAN-7 AMB Questionnaire ARIAN-7 Date ARIAN - 7 assessed: 01/06/25 Feeling nervous, anxious, or on edge: 0 = Not at all Not being able to stop or control worryin = Not at all Worrying too much about different things: 0 = Not at all Trouble relaxin = Not at all Being so restless that it is hard to sit still: 0 = Not at all Becoming easily annoyed or irritable: 0 = Not at all Feeling afraid as if something awful might happen: 0 = Not at all Total ARIAN-7 score (0-4 normal; 5-9 mild; 10-14 moderate; 15-21 severe): 0 Source: Developed by Drs. Ercikson Mathew, Fannie Solorzano, Rusty Turner and colleagues, with an educational rachel from [id number]. Review of Systems Const Denies chills, Reports difficulty sleeping, Reports fatigue, Denies fever(s) and Denies headache(s) ENT Denies dysphagia, Denies dizziness, Denies otalgia, Denies headache(s), Denies neck pain, Denies odynophagia and Denies sore throat Card Denies chest pain, Denies palpitations and Reports dyspnea on exertion (mild) Resp Reports chest congestion (on and off - chest feels tight at times), Reports cough (recurrent, often with sensation of phlegm in his throat), Denies hemoptysis, Denies pain with cough, Reports dyspnea on exertion (mild) and Denies wheezing GI Denies abdominal pain, Denies constipation, Denies dysphagia, Denies heartburn, Denies diarrhea, Denies nausea, Denies odynophagia and Denies vomiting Reports erectile dysfunction, Denies dysuria, Denies urinary frequency and Denies urinary incontinence Musc Reports back pain (over the lower back (chronic) - increased lately), Denies neck pain and Reports radiating pain into limb (down into the right lower extremity - on and off) Skin/Breast Denies rash Neuro Denies dizziness and Denies headache(s) Endo Reports fatigue and Denies palpitations Aller/Immun Denies wheezing Physical exam (Primary Care) Vital Signs: Last Vital Signs Pulse 69 01/06/25 14:33 BP 136/76 01/06/25 14:51 Pulse Ox 94 01/06/25 14:33 Oxygen Delivery Method Room Air 01/06/25 14:33 BMI result Body Mass Index 32.6 Tobacco/Smoking Status: Tobacco use Status Tobacco use date assessed 01/06/25 01/06/25 14:40 Patient Tobacco Use Status Former Tobacco user 01/06/25 14:40 Tobacco use type Cigarette 01/06/25 14:40 e-Cigarette/Vaping Use Never Used 01/06/25 14:40 PHQ-9: PHQ-9 Score PHQ-9: Total score 7 01/06/25 14:55 Depression Screening Interpretation: Positive Depression Screening Follow-up: Existing condition and Follow-up Visit Requested Thrive Assessment: Date of Thrive Assessment Date Thrive assessed 01/06/25 01/06/25 14:40 Currently or been in a relationship where the following occur: No concerns reported Const General: no acute distress and alert HENMT Ears: TM's normal bilaterally and EAC's normal Throat: Yes posterior oropharynx normal and Yes tonsils normal (no TP congestion) Neck Neck: Yes supple and No lymphadenopathy Thyroid: Thyroid normal Resp Auscultation: no crackles, no rales, rhonchi (occasional) throughout, wheezes (occasional, faint) upper bilaterally and diminished lung sounds bilateral Cardio Rate: regular rate Rhythm: regular rhythm Heart sounds: no murmurs GI Palpation (GI): Soft to palpation and nontender Auscultation: normal bowel sounds General: Yes no CVA tenderness Back/Spine/Pelvis Back: no CVA tenderness Thoracic/Lumbar Spine: lumbar spinal tenderness and straight leg raise positive right Skin Rashes: no rashes Extrem General: Yes no clubbing, cyanosis or edema Coding Level of Care Code Est Pt Level 4 (17722) Diagnoses Mixed hyperlipidemia E78.2 Elevated LFTs R79.89 Lumbar disc herniation with radiculopathy M51.16 Chronic obstructive pulmonary disease, unspecified COPD type J44.9 COPD type: unspecified COPD GERD without esophagitis K21.9 Impaired fasting glucose R73.01 Erectile dysfunction, unspecified erectile dysfunction type N52.9 Erectile dysfunction type: unspecified Benign prostatic hyperplasia with nocturia N40.1; R35.1 Insomnia, unspecified type G47.00 Insomnia type: unspecified Obesity (BMI 30-39.9) E66.9 Additional Codes PHQ-9 - 58385 - PHQ-9 Billing: Yes ([id number]) Assessment & Plan Assessment & Plan (1) Mixed hyperlipidemia: Code(s): E78.2 - Mixed hyperlipidemia Category: Medical Plan: Patient was not able to get his follow up labs done prior to his appointment today Reinforced low cholesterol diet Continue Atorvastatin 40 mg QD Will recheck his labs and fasting lipids in 4 months for follow up - will just have patient use his current orders (updated) for his next lab draw (2) Elevated LFTs: Code(s): R79.89 - Other specified abnormal findings of blood chemistry Category: Medical Plan: His LFTs were elevated on his previous labs and have increased significantly from before - is most likely due to hepatosteatosis Abdominal US done back in February 2022 revealed (+) mild hepatomegaly and mild splenomegaly; hepatitis screen came back negative Patient is again reminded to avoid taking any medication containing or including Acetaminophen or Tylenol as much as possible Will continue to monitor his LFTs regularly (3) Lumbar disc herniation with radiculopathy: Comment: S/P left L3-L4 lumbar laminotomy Code(s): M51.16 - Intervertebral disc disorders with radiculopathy, lumbar region Category: Medical Plan: S/P left L3-L4 laminotomy/microdiscectomy last year on 02/15/[address] Bailey at [facility] States that his low back pain and left-sided radicular pains improved significantly with surgery and with physical therapy for a while but he has been experiencing increasing low back pain, with frequent radiation of the pain down his right leg Recalls that he had a repeat lumbar spine MRI done after which he was seen by neurosurgery (at [facility]) a couple of months ago Was advised that he has some cysts along his lumbar spine but he had no surgical indications at the time Reinforced activity and weight-lifting restrictions to avoid aggravating his lower back Follow up with neurosurgery as scheduled or as needed (4) COPD (chronic obstructive pulmonary disease): Code(s): J44.9 - Chronic obstructive pulmonary disease, unspecified Category: Medical Qualifiers: COPD type: unspecified COPD Qualified Code(s): J44.9 - Chronic obstructive pulmonary disease, unspecified Plan: His COPD currently again appears inadequately controlled His insurance did not cover Breo Ellipta in the past and he was started instead on Advair Diskus at his last visit Patient states that he could not get his Rx filled as his insurance is requiring him to put up a large co-pay on his Rx Will now try to switch him over to Symbicort 160-4.5 mcg 1 inhalation BID Continue Albuterol HFA 1 to 2 inhalations Q 6 hours PRN May again need to refer him to pulmonary for further management if his respiratory symptoms are still not adequately controlled or if he still cannot get on Symbicort (5) GERD without esophagitis: Code(s): K21.9 - Gastro-esophageal reflux disease without esophagitis Category: Medical Plan: Dietary restrictions reinforced Continue Pantoprazole 40 mg QD (6) Impaired fasting glucose: Code(s): R73.01 - Impaired fasting glucose Category: Medical Plan: His HgbA1c remains unchanged at 6.4% on his labs done a few months ago; his in- office HgbA1c was previously also at 6.4% Have advised patient that a 6.4% HgbA1c puts him right at the cut-off between borderline and actual diabetes and he should try to work on getting this lower again Reinforced diabetic diet (7) Erectile dysfunction: Code(s): N52.9 - Male erectile dysfunction, unspecified Category: Medical Qualifiers: Erectile dysfunction type: unspecified Qualified Code(s): N52.9 - Male erectile dysfunction, unspecified Plan: Continue Sildenafil 50 mg QD PRN (8) Benign prostatic hyperplasia with nocturia: Code(s): N40.1 - Benign prostatic hyperplasia with lower urinary tract symptoms; R35.1 - Nocturia Category: Medical Plan: Continue Tamsulosin 0.4 mg Q HS - states that Rx has helped with his symptoms somewhat (9) Insomnia: Code(s): G47.00 - Insomnia, unspecified Category: Medical Qualifiers: Insomnia type: unspecified Qualified Code(s): G47.00 - Insomnia, unspecified Plan: Sleep hygiene reinforced Continue Trazodone 50 mg Q HS PRN (10) Obesity (BMI 30-39.9): Code(s): E66.9 - Obesity, unspecified Category: Medical Plan: Reinforced diet; exercise and weight loss are currently not practical due to his lower back issues Plan Follow up in 4 months Medications: New budesonide-formoterol 160-4.5 mcg/actuation (Symbicort) 1 inh inhalation BID 10.2 grams 3RF
[2025-01-06 14:33] VITALS: BP 154/62; PULSE 69; O2SAT 94; BMI 32.6
[2025-01-06 14:51] VITALS: BP 136/76
== END 2025-01-06 14:56 | disposition home or self-care (01) ==
LOC: HO.HMCH 14:22
PROVIDERS: PCP Internal Medicine; Visit Provider Internal Medicine
DX: E78.2 Mixed hyperlipidemia (principal); J44.9 Chronic obstructive pulmonary disease, unspecified; E66.9 Obesity, unspecified; Z68.32 Body mass index [BMI] 32.0-32.9, adult; R79.89 Other specified abnormal findings of blood chemistry; M51.16 Intervertebral disc disorders with radiculopathy, lumbar region; K21.9 Gastro-esophageal reflux disease without esophagitis; R73.01 Impaired fasting glucose; N52.9 Male erectile dysfunction, unspecified; N40.1 Benign prostatic hyperplasia with lower urinary tract symptoms; R35.1 Nocturia; G47.00 Insomnia, unspecified

== ENCOUNTER → 2025-01-06 14:21 | Outpatient (BNVA) | payer MEDICARE, SELFPAY | PROVIDERS: PCP Internal Medicine; Visit Provider Internal Medicine | DX: E78.2 Mixed hyperlipidemia (principal); R79.89 Other specified abnormal findings of blood chemistry; M51.16 Intervertebral disc disorders with radiculopathy, lumbar region; J44.9 Chronic obstructive pulmonary disease, unspecified; K21.9 Gastro-esophageal reflux disease without esophagitis; R73.01 Impaired fasting glucose; N52.9 Male erectile dysfunction, unspecified; N40.1 Benign prostatic hyperplasia with lower urinary tract symptoms; R35.1 Nocturia; G47.00 Insomnia, unspecified; E66.9 Obesity, unspecified | CPT/HCPCS: 96127; 99212 ==

== ENCOUNTER 2025-05-07 06:04 | Outpatient (REF) | payer MEDICARE, SELFPAY ==
[2025-05-07 06:28] LABS: MANUAL DIFF FLAG NO
[2025-05-07 07:31] LABS: Hematocrit 40.9 % (42.0-52.0); Hemoglobin 14.4 g/dl (14.0-18.0); Imm Gran Abs Auto 0.02 X10*3/uL (0.00-0.03); Imm Gran Pct Auto 0.4 % (0.0-0.4); Lymphocytes Absolute Auto 1.5 X10*3/uL (1.2-4.9); Mean Corpuscular HGB Conc 35.2 g/dl (31.0-36.0); Mean Corpuscular Hemoglobin 32.4 pg (27.0-33.0); Mean Corpuscular Volume 91.9 fL (80.0-98.0); NRBC Abs Auto 0.000 X10*3/uL (0.0-0.012); NRBC Pct Auto 0.0 /100WBC (0.0-0.2); Platelet Count 199 X10*3/uL (160-400); Red Blood Count 4.45 X10*6/uL (4.60-5.80); White Blood Count 5.4 X10*3/uL (4.8-10.8)
[2025-05-07 07:44] LABS: Appearance Urine Clear; Glucose Urine UA Negative (Negative); PH 5.5 (5.0-9.0); Specific Gravity - Urine 1.015 (1.005-1.025)
[2025-05-07 07:46] LABS: Hemoglobin A1C 193.4581 umol/L; Total Hemoglobin (HGBA1C) 3732.3554 umol/L
[2025-05-07 08:01] LABS: Alanine Aminotransferase 51 U/L (0-40); Albumin Level 4.4 g/dL (3.5-5.0); Alkaline Phosphatase 49 U/L (39-117); Anion Gap 10 (12-20); Aspartate Amino Transferase 41 U/L (5-37); Blood Urea Nitrogen 14 mg/dL (9-16); Calcium 8.7 mg/dL (8.4-10.2); Carbon Dioxide 29 mmol/L (22-29); Chloride 107 mmol/L (96-108); Cholesterol 112 mg/dL (<200); Estimated Glomerular Filt Rate > 60; HDL Cholesterol 27 mg/dL (>40); Potassium 4.2 mmol/L (3.3-5.1); Sodium 142 mmol/L (135-145); Total Protein 7.0 g/dL (6.5-8.0); Triglycerides 177 mg/dL (<150)
[2025-05-07 08:20] LABS: Folate 6.8 ng/mL (> or = 4.0); Vitamin B12 1397 pg/mL (200-900)
== END 2025-05-07 06:05 | disposition home or self-care (01) ==
LOC: HO.LAB 06:04
PROVIDERS: PCP Internal Medicine; Visit Provider Internal Medicine
DX: E53.8 Deficiency of other specified B group vitamins (principal); R73.01 Impaired fasting glucose; R30.0 Dysuria; E78.00 Pure hypercholesterolemia, unspecified; D64.9 Anemia, unspecified; E55.9 Vitamin D deficiency, unspecified
CPT/HCPCS: 36415; 80053; 80061; 81003; 82306; 82607; 82746; 83036; 84443; 85025

== ENCOUNTER 2025-05-11 15:15 | Outpatient (AMB) | payer MEDICARE, SELFPAY ==
[2025-05-11 15:28] VITALS: BP 136/72; PULSE 65; O2SAT 95; BMI 33.3
--- NOTE | 2025-05-11 15:28 | MHC.PC.OV ---
Vital Signs 05/11/25 15:28 Height 6 ft 2 in Weight 259 lb 6 oz BMI 33.3 BP 136/72 Blood Pressure Location Lt brachial Position Sitting Pulse 65 Pulse Source Pulse Oximeter Pulse Oximetry (%) 95 Oxygen Delivery Method Room Air Intake Visit Reasons: 4 Months f/u Allergies No Known Allergies Allergy (Verified 05/11/25 15:41) Medication List - Last Reconciled 05/11/25 by Germán Bradford MD Advair HFA 115-21 mcg/actuation (fluticasone propion-salmeterol) 1 puff inhalation BID NS albuterol sulfate 90 mcg/actuation 2 puffs inhalation Q6H PRN amlodipine 2.5 mg PO BID aspirin 81 mg PO DAILY atorvastatin 40 mg PO DAILY benzonatate 100 mg PO TID budesonide-formoterol 160-4.5 mcg/actuation (Symbicort) 1 inh inhalation BID cetirizine 10 mg PO DAILY dextromethorphan polistirex ER (Delsym 12 hour) 10 mL PO Q12H PRN fluocinolone acetonide oil 0.01% 5 drps otic (ear) left BID PRN 7 days omeprazole 20 mg PO DAILY sildenafil 50 mg PO DAILY PRN 30 days tamsulosin 0.4 mg PO BEDTIME 90 days tramadol 50 mg PO TID PRN trazodone 50 mg PO BEDTIME PRN 90 days triamcinolone acetonide 0.1% 1 appl topical BID PRN Tobacco use date assessed: 01/06/25 Fall risk assessment: No Falls in past year Dental Screening Dental Screen Date: 01/06/25 Did you have a dental visit in the last 12 months?: Yes Did you have a dental problem in the last 6 months where you did not have access to dental care?: No Was dental information given to patient?: Patient has dentist HPI 4 Months f/u HPI Details Patient comes in today for his follow-up visit States that he feels okay He denies any headaches or dizziness Denies any chest pains, no increased shortness of breath No nausea/vomiting, no abdominal pain No change in bowel habits noted He is still struggling with chronic pain over his lower back and states that he is going for ablation with [facility] next month He had his follow-up labs done a few days ago - to discuss his results [facility] Medical History (Updated 05/17/25 @ 02:56 by Germán Bradford MD) Diabetes mellitus COPD (chronic obstructive pulmonary disease) Lumbar disc herniation with radiculopathy Impaired fasting glucose Obesity (BMI 30-39.9) Pure hypercholesterolemia GERD without esophagitis Insomnia Hyperlipidemia Surgical History Hx of decompressive lumbar laminectomy S/P cardiac catheterization (~06/26/22) History of neck surgery History of colonoscopy History of thumb surgery History of left knee surgery Family History Father Colon cancer Mother Heart failure Brother Lung cancer Prostate cancer Brother Stroke Brother In good health Daughter In good health Social History Housing: Apartment Alcohol intake: former Patient Tobacco Use Status: Former Tobacco user Tobacco use type: Cigarette Years Smoked: stopped 23 years ago e-Cigarette/Vaping Use: Never Used Second Hand Smoke Exposure: Yes service: No Current occupational status: employed Cognitive needs: No Hearing needs: No Vision needs: Yes (glasses) Questionnaire PHQ-9 Over the last 2 weeks, how often have you been bothered by any of the following problems? 1. Little interest or pleasure in doing things: not at all 2. Feeling down, depressed, or hopeless: not at all 3. Trouble falling or staying asleep, or sleeping too much: not at all 4. Feeling tired or having little energy: nearly every day 5. Poor appetite or overeating: not at all 6. Feeling bad about yourself - or that you are a failure or have let yourself or your family down: not at all 7. Trouble concentrating on things, such as reading the newspaper or watching television: not at all 8. Moving or speaking so slowly that other people could have noticed. Or the opposite - being so fidgety or restless that you have been moving around a lot more than usual: not at all 9. Thoughts that you would be better off or of hurting yourself in some way: not at all Total score: 3 Depression Screening Interpretation: Positive Depression Screening Follow-up: Follow-up Visit Requested Depression Screening Done: Yes 93180 - PHQ-9 Billing: Yes Source: Developed by Drs. Erickson Mathew, Fannie Solorzano, Rusty Turner and colleagues, with an educational rachel from [employer]. Thrive Questionnaire Date Thrive assessed: 01/06/25 I am a: Patient What is your living situation today?: I have a steady place to live Within the past 12 months, did the food you bought not last and you didn't have the money to get more?: I choose not to answer this question Within the past 12 months, did you worry whether your food would run out before you got money to buy more?: Never true Do you have trouble paying for medicines?: No Do you have trouble getting transportation to medical appointments?: No Do you have trouble paying your heating and electricity bill?: No Do you have trouble taking care of your child, family member or friend?: No Do you have trouble with day-to-day activities such as bathing, preparing meals, shopping, managing finances, etc.?: No Are you currently unemployed and looking for a job?: Yes Are you interested in more education?: No Please select the resources that you would like help with: None Currently or been in a relationship where the following occur: No concerns reported THRIVE Score: 0 AUDIT C Alcohol Use Questionnaire (AUDIT-C) 1. How often do you have a drink containing alcohol?: Never Total Score: 0 Score Reviewed/Action Taken: Yes ARIAN-7 AMB Questionnaire ARIAN-7 Date ARIAN - 7 assessed: 01/06/25 Feeling nervous, anxious, or on edge: 0 = Not at all Not being able to stop or control worryin = Not at all Worrying too much about different things: 0 = Not at all Trouble relaxin = Not at all Being so restless that it is hard to sit still: 0 = Not at all Becoming easily annoyed or irritable: 0 = Not at all Feeling afraid as if something awful might happen: 0 = Not at all Total ARIAN-7 score (0-4 normal; 5-9 mild; 10-14 moderate; 15-21 severe): 0 Source: Developed by Fannie Farnsworth Kurt Kroenke and colleagues, with an educational rachel from [employer]. Review of Systems Const Denies chills, Reports difficulty sleeping, Reports fatigue, Denies fever(s) and Denies headache(s) ENT Denies dysphagia, Denies dizziness, Denies otalgia, Denies headache(s), Denies neck pain, Denies odynophagia and Denies sore throat Card Denies chest pain, Denies palpitations and Reports dyspnea on exertion (mild) Resp Reports chest congestion (on and off - chest feels tight at times), Reports cough (recurrent, often with sensation of phlegm in his throat), Denies hemoptysis, Denies pain with cough, Reports dyspnea on exertion (mild) and Denies wheezing GI Denies abdominal pain, Denies constipation, Denies dysphagia, Denies heartburn, Denies diarrhea, Denies nausea, Denies odynophagia and Denies vomiting Reports erectile dysfunction, Denies dysuria, Denies urinary frequency and Denies urinary incontinence Musc Reports back pain (over the lower back (chronic) - increased lately), Denies neck pain and Reports radiating pain into limb (down into the right lower extremity - on and off) Skin/Breast Denies rash Neuro Denies dizziness and Denies headache(s) Endo Reports fatigue and Denies palpitations Aller/Immun Denies wheezing Physical exam (Primary Care) Vital Signs: Last Vital Signs Pulse 65 05/11/25 15:28 BP 136/72 05/11/25 15:28 Pulse Ox 95 05/11/25 15:28 Oxygen Delivery Method Room Air 05/11/25 15:28 BMI result Body Mass Index 33.3 Tobacco/Smoking Status: Tobacco use Status Tobacco use date assessed 01/06/25 05/11/25 15:29 Patient Tobacco Use Status Former Tobacco user 05/11/25 15:29 Tobacco use type Cigarette 05/11/25 15:29 e-Cigarette/Vaping Use Never Used 05/11/25 15:29 PHQ-9: PHQ-9 Score PHQ-9: Total score 3 05/11/25 15:44 Depression Screening Interpretation: Positive Depression Screening Follow-up: Follow-up Visit Requested Thrive Assessment: Date of Thrive Assessment Date Thrive assessed 01/06/25 05/11/25 15:29 Currently or been in a relationship where the following occur: No concerns reported Const General: no acute distress and alert HENMT Ears: TM's normal bilaterally and EAC's normal Throat: Yes posterior oropharynx normal and Yes tonsils normal (no TP congestion) Neck Neck: Yes supple and No lymphadenopathy Thyroid: Thyroid normal Resp Auscultation: no crackles, no rales, rhonchi (occasional) throughout, wheezes (occasional, faint) upper bilaterally and diminished lung sounds bilateral Cardio Rate: regular rate Rhythm: regular rhythm Heart sounds: no murmurs GI Palpation (GI): Soft to palpation and nontender Auscultation: normal bowel sounds General: Yes no CVA tenderness Back/Spine/Pelvis Back: no CVA tenderness Thoracic/Lumbar Spine: lumbar spinal tenderness and straight leg raise positive Skin Rashes: no rashes Extrem General: Yes no clubbing, cyanosis or edema Results Reviewed Results Reviewed: Laboratory Tests 05/07/25 05/07/25 06:21 06:22 WBC 5.4 Hgb 14.4 Hct 40.9 L Plt Count 199 Sodium 142 Potassium 4.2 Creatinine 1.11 Estimated GFR > 60 Fasting Glucose 153 H Hemoglobin A1c % 6.9 H Total Bilirubin 1.4 H AST 41 H ALT 51 H Triglycerides 177 H Cholesterol 112 LDL Cholesterol, Calc 50 HDL Cholesterol 27 L Vitamin B12 1397 H 25-OH Vitamin D Total 36.3 TSH 2.30 Ur Specific [place] 1.015 Urine Protein Negative Urine Glucose (UA) Negative Urine Blood Negative Urine Nitrite Negative Ur Leukocyte Esterase Negative Coding Level of Care Code Est Pt Level 4 (89165) Diagnoses Mixed hyperlipidemia E78.2 Elevated LFTs R79.89 Lumbar disc herniation with radiculopathy M51.16 Chronic obstructive pulmonary disease, unspecified COPD type J44.9 COPD type: unspecified COPD GERD without esophagitis K21.9 Type 2 diabetes mellitus without complication, without long-term current use of insulin E11.9 Diabetes mellitus type: type 2 Diabetes mellitus detention insulin use: without detention use Diabetes mellitus complication status: without complication Erectile dysfunction, unspecified erectile dysfunction type N52.9 Erectile dysfunction type: unspecified Benign prostatic hyperplasia with nocturia N40.1; R35.1 Insomnia, unspecified type G47.00 Insomnia type: unspecified Obesity (BMI 30-39.9) E66.9 Additional Codes PHQ-9 - 40530 - PHQ-9 Billing: Yes ([id number]) Assessment & Plan Assessment & Plan (1) Mixed hyperlipidemia: Code(s): E78.2 - Mixed hyperlipidemia Category: Medical Plan: Results of his labs done a few days ago reviewed and discussed with patient Reinforced low cholesterol diet Continue Atorvastatin 40 mg QD Will recheck his labs and fasting lipids in 4 months for follow up (2) Elevated LFTs: Code(s): R79.89 - Other specified abnormal findings of blood chemistry Category: Medical Plan: His LFTs are against lately elevated on his recent labs - is most likely due to hepatosteatosis Abdominal US done back in February 2022 revealed (+) mild hepatomegaly and mild splenomegaly; hepatitis screen came back negative Patient is again reminded to avoid taking any medication containing or including Acetaminophen or Tylenol as much as possible Will continue to monitor his LFTs regularly (3) Lumbar disc herniation with radiculopathy: Comment: S/P left L3-L4 lumbar laminotomy Code(s): M51.16 - Intervertebral disc disorders with radiculopathy, lumbar region Category: Medical Plan: S/P left L3-L4 laminotomy/microdiscectomy last year on 02/15/[address] Bailey at [facility] States that his low back pain and left-sided radicular pains improved significantly with surgery and with physical therapy for a while but he has been experiencing increasing low back pain, with frequent radiation of the pain down his right leg Recalls that he had a repeat lumbar spine MRI done after which he was seen by neurosurgery (at [facility]) a couple of months ago Was advised that he has some cysts along his lumbar spine but he had no surgical indications at the time He is scheduled for ablation at [facility] pain management next month Reinforced activity and weight-lifting restrictions to avoid aggravating his lower back Follow-up with [facility] pain management as scheduled Follow up with neurosurgery as scheduled or as needed (4) COPD (chronic obstructive pulmonary disease): Code(s): J44.9 - Chronic obstructive pulmonary disease, unspecified Category: Medical Qualifiers: COPD type: unspecified COPD Qualified Code(s): J44.9 - Chronic obstructive pulmonary disease, unspecified Plan: His COPD currently again appears inadequately controlled His insurance did not cover Breo Ellipta in the past and he was started instead on Advair Diskus at his last visit Patient states that he could not get his Rx filled as his insurance is requiring him to put up a large co-pay on his Rx Will now try to switch him over to Symbicort 160-4.5 mcg 1 inhalation BID Continue Albuterol HFA 1 to 2 inhalations Q 6 hours PRN May again need to refer him to pulmonary for further management if his respiratory symptoms are still not adequately controlled or if he still cannot get on Symbicort (5) GERD without esophagitis: Code(s): K21.9 - Gastro-esophageal reflux disease without esophagitis Category: Medical Plan: Dietary restrictions reinforced Continue Pantoprazole 40 mg QD (6) Diabetes mellitus: Code(s): E11.9 - Type 2 diabetes mellitus without complications Category: Medical Qualifiers: Diabetes mellitus type: type 2 Diabetes mellitus detention insulin use: without detention use Diabetes mellitus complication status: without complication Qualified Code(s): E11.9 - Type 2 diabetes mellitus without complications Plan: His HgbA1c was at 6.9% on his labs done a few days ago; was previously at 6.4% a few months ago Reinforced diabetic diet Have advised patient that if he can not get his HgbA1c back on a 6.5% at his next visit, then we will likely need to start him then on some medications for his diabetes We will recheck his fasting serum glucose and HgbA1c in 4 months for follow-up (7) Erectile dysfunction: Code(s): N52.9 - Male erectile dysfunction, unspecified Category: Medical Qualifiers: Erectile dysfunction type: unspecified Qualified Code(s): N52.9 - Male erectile dysfunction, unspecified Plan: Continue Sildenafil 50 mg QD PRN (8) Benign prostatic hyperplasia with nocturia: Code(s): N40.1 - Benign prostatic hyperplasia with lower urinary tract symptoms; R35.1 - Nocturia Category: Medical Plan: Continue Tamsulosin 0.4 mg Q HS - states that Rx has helped with his symptoms somewhat (9) Insomnia: Code(s): G47.00 - Insomnia, unspecified Category: Medical Qualifiers: Insomnia type: unspecified Qualified Code(s): G47.00 - Insomnia, unspecified Plan: Sleep hygiene reinforced Continue Trazodone 50 mg Q HS PRN (10) Obesity (BMI 30-39.9): Code(s): E66.9 - Obesity, unspecified Category: Medical Plan: Reinforced diet; exercise and weight loss are currently not practical due to his lower back issues Plan Follow up in 4 months Orders: Orders Hemoglobin A1c 4 Months E11.9 - Type 2 diabetes mellitus without complications Microalbumin, Random (w Creat) 4 Months E11.9 - Type 2 diabetes mellitus without complications TSH reflex Free T4 4 Months E78.00 - Pure hypercholesterolemia, unspecified Vitamin D 25-OH Total 4 Months E55.9 - Vitamin D deficiency, unspecified Complete Blood Count Auto Diff 4 Months D64.9 - Anemia, unspecified Comprehensive [place]. Panel Fast 4 Months E78.00 - Pure hypercholesterolemia, unspecified Lipid Panel 4 Months E78.00 - Pure hypercholesterolemia, unspecified UA CC w/rflx Micro + Cult 4 Months R30.0 - Dysuria Vitamin B12 and Folate 4 Months E53.8 - Deficiency of other specified B group vitamins Medications: New lidocaine 5% leave on most painful area for up to 12 hrs 1 patch topical DAILY 30 ea 2RF Refilled tramadol 50 mg PO TID PRN 30 tabs 0RF low back pain
== END 2025-05-11 15:51 | disposition home or self-care (01) ==
LOC: HO.HMCH 15:16
PROVIDERS: PCP Internal Medicine; Visit Provider Internal Medicine
DX: J44.9 Chronic obstructive pulmonary disease, unspecified (principal); E11.9 Type 2 diabetes mellitus without complications; E66.9 Obesity, unspecified; Z68.33 Body mass index [BMI] 33.0-33.9, adult; K21.9 Gastro-esophageal reflux disease without esophagitis; E78.2 Mixed hyperlipidemia; R79.89 Other specified abnormal findings of blood chemistry; M51.16 Intervertebral disc disorders with radiculopathy, lumbar region; N52.9 Male erectile dysfunction, unspecified; N40.1 Benign prostatic hyperplasia with lower urinary tract symptoms; R35.1 Nocturia; G47.00 Insomnia, unspecified

== ENCOUNTER → 2025-05-11 15:15 | Outpatient (BNVA) | payer MEDICARE, SELFPAY | PROVIDERS: PCP Internal Medicine; Visit Provider Internal Medicine | DX: E78.2 Mixed hyperlipidemia (principal); R79.89 Other specified abnormal findings of blood chemistry; M51.16 Intervertebral disc disorders with radiculopathy, lumbar region; J44.9 Chronic obstructive pulmonary disease, unspecified; K21.9 Gastro-esophageal reflux disease without esophagitis; E11.9 Type 2 diabetes mellitus without complications; N52.9 Male erectile dysfunction, unspecified; N40.1 Benign prostatic hyperplasia with lower urinary tract symptoms; R35.1 Nocturia; G47.00 Insomnia, unspecified; E66.9 Obesity, unspecified; Z68.33 Body mass index [BMI] 33.0-33.9, adult | CPT/HCPCS: 96127; 99212 ==

== ENCOUNTER 2025-09-10 14:32 | Outpatient (AMB) | payer MEDICARE, SELFPAY ==
--- NOTE | 2025-09-10 14:38 | A.OFFPC_ITS ---
Vital Signs 09/10/25 14:39 Height 6 ft 2 in Weight 261 lb 4 oz BMI 33.5 BP 150/82 H Blood Pressure Location Lt brachial Position Sitting Pulse 58 Pulse Source Pulse Oximeter Pulse Oximetry (%) 95 Oxygen Delivery Method Room Air Intake Visit Reasons: 4 Months Slurry Control Tender Required: No Accompanied by: Self / Same As Patient Allergies No Known Allergies Allergy (Verified 09/10/25 15:19) Medication List - Last Reconciled 09/10/25 by Germán Bradford MD Advair HFA 115-21 mcg/actuation (fluticasone propion-salmeterol) 1 puff inhalation BID NS albuterol sulfate 90 mcg/actuation 2 puffs inhalation Q6H PRN amlodipine 2.5 mg PO BID aspirin 81 mg PO DAILY atorvastatin 40 mg PO DAILY benzonatate 100 mg PO TID budesonide-formoterol 160-4.5 mcg/actuation (Symbicort) 1 inh inhalation BID cetirizine 10 mg PO DAILY dextromethorphan polistirex ER (Delsym 12 hour) 10 mL PO Q12H PRN fluocinolone acetonide oil 0.01% 5 drps otic (ear) left BID PRN 7 days lidocaine 5% 1 patch topical DAILY omeprazole 20 mg PO DAILY sildenafil 50 mg PO DAILY PRN 30 days tamsulosin 0.4 mg PO BEDTIME 90 days tramadol 50 mg PO TID PRN trazodone 50 mg PO BEDTIME PRN 90 days triamcinolone acetonide 0.1% 1 appl topical BID PRN Tobacco use date assessed: 09/10/25 Fall risk assessment: 2 + Falls in past year Last assessed Fall Risk: 09/10/25 Dental Screening Dental Screen Date: 09/10/25 Did you have a dental visit in the last 12 months?: No Did you have a dental problem in the last 6 months where you did not have access to dental care?: No Was dental information given to patient?: No HPI 4 Months HPI Details Patient comes in today for his follow up visit States that he has been experiencing a significant increase in his low back pain lately - relates that his lower back problems stem from a work-related accident many years ago and that he has an an appointment to see his doctor for his worker's comp case in a couple of weeks on 09/22/2025 He was referred to pain management and underwent a nerve ablation after two test procedures. States that the procedure provided good pain relief for about three weeks, after which he experienced a sudden return of severe pain in his lower back. He reports that some days are not as bad, and he takes pain medication when the pain is severe. Pain is significant upon getting out of bed, and cold weather seems to e xacerbate his symptoms. Patient states that he feels okay otherwise He denies any headaches or dizziness Denies any chest pains, no increased shortness of breath No nausea/vomiting, no abdominal pain No change in bowel habits noted He was not able to get his follow-up labs done prior to his appointment today [facility] Medical History Diabetes mellitus COPD (chronic obstructive pulmonary disease) Lumbar disc herniation with radiculopathy Impaired fasting glucose Obesity (BMI 30-39.9) Pure hypercholesterolemia GERD without esophagitis Insomnia Hyperlipidemia Surgical History Hx of decompressive lumbar laminectomy S/P cardiac catheterization (~06/26/22) History of neck surgery History of colonoscopy History of thumb surgery History of left knee surgery Family History Father Colon cancer Mother Heart failure Brother Lung cancer Prostate cancer Brother Stroke Brother In good health Daughter In good health Social History Housing: Apartment Alcohol intake: former Patient Tobacco Use Status: Former Tobacco user Tobacco use type: Cigarette Years Smoked: stopped 23 years ago e-Cigarette/Vaping Use: Never Used Second Hand Smoke Exposure: Yes service: No Current occupational status: employed Cognitive needs: No Hearing needs: No Vision needs: Yes (glasses) Questionnaire PHQ-9 Over the last 2 weeks, how often have you been bothered by any of the following problems? 1. Little interest or pleasure in doing things: not at all 2. Feeling down, depressed, or hopeless: not at all 3. Trouble falling or staying asleep, or sleeping too much: not at all 4. Feeling tired or having little energy: nearly every day 5. Poor appetite or overeating: not at all 6. Feeling bad about yourself - or that you are a failure or have let yourself or your family down: not at all 7. Trouble concentrating on things, such as reading the newspaper or watching television: not at all 8. Moving or speaking so slowly that other people could have noticed. Or the opposite - being so fidgety or restless that you have been moving around a lot more than usual: not at all 9. Thoughts that you would be better off or of hurting yourself in some way: not at all Total score: 3 Depression Screening Interpretation: Positive Depression Screening Follow-up: Follow-up Visit Requested Depression Screening Done: Yes [id number] - PHQ-9 Billing: Yes Source: Developed by Drs. Erickson Mathew, Fannie Solorzano, Rusty Turner and colleagues, with an educational rachel from [employer]. Thrive Questionnaire Date Thrive assessed: 09/10/25 I am a: Patient What is your living situation today?: I have a steady place to live Within the past 12 months, did the food you bought not last and you didn't have the money to get more?: I choose not to answer this question Within the past 12 months, did you worry whether your food would run out before you got money to buy more?: Never true Do you have trouble paying for medicines?: No Do you have trouble getting transportation to medical appointments?: No Do you have trouble paying your heating and electricity bill?: No Do you have trouble taking care of your child, family member or friend?: No Do you have trouble with day-to-day activities such as bathing, preparing meals, shopping, managing finances, etc.?: No Are you currently unemployed and looking for a job?: Yes Are you interested in more education?: No Please select the resources that you would like help with: None Currently or been in a relationship where the following occur: No concerns reported THRIVE Score: 0 AUDIT C Alcohol Use Questionnaire (AUDIT-C) 1. How often do you have a drink containing alcohol?: Never 3. How often do you have six or more drinks on one occasion?: Never Total Score: 0 Score Reviewed/Action Taken: Yes ARIAN-7 AMB Questionnaire ARIAN-7 Date ARIAN - 7 assessed: 09/10/25 Feeling nervous, anxious, or on edge: 0 = Not at all Not being able to stop or control worryin = Not at all Worrying too much about different things: 0 = Not at all Trouble relaxin = Not at all Being so restless that it is hard to sit still: 0 = Not at all Becoming easily annoyed or irritable: 0 = Not at all Feeling afraid as if something awful might happen: 0 = Not at all Total ARIAN-7 score (0-4 normal; 5-9 mild; 10-14 moderate; 15-21 severe): 0 Source: Developed by Drs. Erickson Mathew, Fannie Solorzano, Rusty Turner and colleagues, with an educational rachel from [employer]. Review of Systems Const Denies chills, Reports difficulty sleeping, Reports fatigue, Denies fever(s) and Denies headache(s) ENT Denies dysphagia, Denies dizziness, Denies otalgia, Denies headache(s), Denies neck pain, Denies odynophagia and Denies sore throat Card Denies chest pain, Denies palpitations and Reports dyspnea on exertion (mild) Resp Denies chest congestion, Denies cough, Reports dyspnea on exertion (mild) and Denies wheezing GI Denies abdominal pain, Denies constipation, Denies dysphagia, Denies heartburn, Denies diarrhea, Denies nausea, Denies odynophagia and Denies vomiting Denies difficulty urinating, Reports erectile dysfunction, Denies dysuria and Denies urinary frequency Musc Reports back pain (over the lower back (chronic) - increased lately), Denies neck pain and Reports radiating pain into limb (down into the right lower extremity - on and off) Skin/Breast Denies rash Neuro Denies dizziness and Denies headache(s) Endo Reports fatigue and Denies palpitations Aller/Immun Denies wheezing Physical exam (Primary Care) Vital Signs: Last Vital Signs Pulse 58 09/10/25 14:39 BP 150/82 H 09/10/25 14:39 Pulse Ox 95 09/10/25 14:39 Oxygen Delivery Method Room Air 09/10/25 14:39 BMI result Body Mass Index 33.5 Tobacco/Smoking Status: Tobacco use Status Tobacco use date assessed 09/10/25 09/10/25 14:43 Patient Tobacco Use Status Former Tobacco user 09/10/25 14:43 Tobacco use type Cigarette 09/10/25 14:43 e-Cigarette/Vaping Use Never Used 09/10/25 14:43 PHQ-9: PHQ-9 Score PHQ-9: Total score 3 09/10/25 15:25 Depression Screening Interpretation: Positive Depression Screening Follow-up: Follow-up Visit Requested Thrive Assessment: Date of Thrive Assessment Date Thrive assessed 09/10/25 09/10/25 14:43 Currently or been in a relationship where the following occur: No concerns reported Const General: no acute distress and alert HENMT Ears: TM's normal bilaterally and EAC's normal Throat: Yes posterior oropharynx normal and Yes tonsils normal (no TP congestion) Neck Neck: Yes supple and No lymphadenopathy Thyroid: Thyroid normal Resp Auscultation: clear to auscultation bilaterally, no crackles, no rales and no wheezes Cardio Rate: regular rate Rhythm: regular rhythm Heart sounds: no murmurs GI Palpation (GI): Soft to palpation and nontender Auscultation: normal bowel sounds General: Yes no CVA tenderness Back/Spine/Pelvis Back: no CVA tenderness Thoracic/Lumbar Spine: lumbar spinal tenderness and straight leg raise positive Skin Rashes: no rashes Extrem General: Yes no clubbing, cyanosis or edema Coding Level of Care Code Est Pt Level 4 (39755) Diagnoses Mixed hyperlipidemia E78.2 Type 2 diabetes mellitus without complication, without long-term current use of insulin E11.9 Diabetes mellitus type: type 2 Diabetes mellitus chcf insulin use: without chcf use Diabetes mellitus complication status: without complication Elevated LFTs R79.89 Chronic obstructive pulmonary disease, unspecified COPD type J44.9 COPD type: unspecified COPD Lumbar disc herniation with radiculopathy M51.16 GERD without esophagitis K21.9 Erectile dysfunction, unspecified erectile dysfunction type N52.9 Erectile dysfunction type: unspecified Benign prostatic hyperplasia with nocturia N40.1; R35.1 Insomnia, unspecified type G47.00 Insomnia type: unspecified Obesity (BMI 30-39.9) E66.9 Additional Codes PHQ-9 - 09329 - PHQ-9 Billing: Yes ([id number]) Assessment & Plan Assessment & Plan (1) Mixed hyperlipidemia: Code(s): E78.2 - Mixed hyperlipidemia Category: Medical Plan: Patient was not able to get his follow up labs done prior to his appointment today Reinforced low cholesterol diet Continue Atorvastatin 40 mg QD Will recheck his labs and fasting lipids in 4 months for follow up - will just have patient use his current orders (updated) for his next lab draw (2) Diabetes mellitus: Code(s): E11.9 - Type 2 diabetes mellitus without complications Category: Medical Qualifiers: Diabetes mellitus type: type 2 Diabetes mellitus 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 insulin use: without 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 use Diabetes mellitus complication status: without complication Qualified Code(s): E11.9 - Type 2 diabetes mellitus without complications Plan: His HgbA1c was at 6.9% when last checked in May 2025; was previously at 6.4% a few months prior Reinforced diabetic diet Have advised patient that if he can not get his HgbA1c back under 6.5% at his next visit, then we will likely need to start him on some medication for his diabetes We will recheck his fasting serum glucose and HgbA1c in 4 months for follow-up (3) Elevated LFTs: Code(s): R79.89 - Other specified abnormal findings of blood chemistry Category: Medical Plan: His LFTs were still elevated on his most recent labs done a few months ago - this is most likely due to hepatosteatosis Abdominal US done back in February 2022 revealed (+) mild hepatomegaly and mild splenomegaly; hepatitis screen came back negative Patient is again reminded to avoid taking any medication containing or including Acetaminophen or Tylenol as much as possible Will continue to monitor his LFTs regularly (4) COPD (chronic obstructive pulmonary disease): Code(s): J44.9 - Chronic obstructive pulmonary disease, unspecified Category: Medical Qualifiers: COPD type: unspecified COPD Qualified Code(s): J44.9 - Chronic obstructive pulmonary disease, unspecified Plan: Controlled Continue Symbicort 160-4.5 mcg 1 inhalation BID and Albuterol HFA 1 to 2 inhalations Q 6 hours PRN His insurance did not cover Breo Ellipta and Advair Diskus in the past (5) Lumbar disc herniation with radiculopathy: Comment: S/P left L3-L4 lumbar laminotomy Code(s): M51.16 - Intervertebral disc disorders with radiculopathy, lumbar region Category: Medical Plan: S/P left L3-L4 laminotomy/microdiscectomy last year on 02/15/[address] Bailey at [facility] States that his low back pain and left-sided radicular pains improved significantly with surgery and with physical therapy for a while but he has been experiencing again increasing low back pain, with frequent radiation of the pain down his right leg lately Recalls that he had a repeat lumbar spine MRI done after which he was seen by neurosurgery (at [facility]) a few months ago He was advised that he has some cysts along his lumbar spine but he had no surgical indications at the time He eventually underwent ablation at [facility] pain management a few months ago - states that his low back pain improved for a while after his procedure but he again started experiencing increased pain over his lower back recently Reinforced activity and weight-lifting restrictions to avoid aggravating his lower back Follow-up with [facility] pain management as scheduled Follow up with neurosurgery as scheduled or as needed (6) GERD without esophagitis: Code(s): K21.9 - Gastro-esophageal reflux disease without esophagitis Category: Medical Plan: Dietary restrictions reinforced Continue Omeprazole 20 mg QD (7) Erectile dysfunction: Code(s): N52.9 - Male erectile dysfunction, unspecified Category: Medical Qualifiers: Erectile dysfunction type: unspecified Qualified Code(s): N52.9 - Male erectile dysfunction, unspecified Plan: Continue Sildenafil 50 mg QD PRN (8) Benign prostatic hyperplasia with nocturia: Code(s): N40.1 - Benign prostatic hyperplasia with lower urinary tract symptoms; R35.1 - Nocturia Category: Medical Plan: Continue Tamsulosin 0.4 mg Q HS - states that Rx has helped with his symptoms somewhat (9) Insomnia: Code(s): G47.00 - Insomnia, unspecified Category: Medical Qualifiers: Insomnia type: unspecified Qualified Code(s): G47.00 - Insomnia, unspecified Plan: Sleep hygiene reinforced Continue Trazodone 50 mg Q HS PRN (10) Obesity (BMI 30-39.9): Code(s): E66.9 - Obesity, unspecified Category: Medical Plan: Reinforced diet; exercise and weight loss are currently not practical due to his lower back issues Plan Follow up in 4 months
[2025-09-10 14:39] VITALS: BP 150/82; PULSE 58; O2SAT 95; BMI 33.5
== END 2025-09-10 15:32 | disposition home or self-care (01) ==
LOC: HO.HMCH 14:33
PROVIDERS: PCP Internal Medicine; Visit Provider Internal Medicine
DX: E11.9 Type 2 diabetes mellitus without complications (principal); J44.9 Chronic obstructive pulmonary disease, unspecified; E66.9 Obesity, unspecified; Z68.33 Body mass index [BMI] 33.0-33.9, adult; E78.2 Mixed hyperlipidemia; R79.89 Other specified abnormal findings of blood chemistry; M51.16 Intervertebral disc disorders with radiculopathy, lumbar region; K21.9 Gastro-esophageal reflux disease without esophagitis; N52.9 Male erectile dysfunction, unspecified; N40.1 Benign prostatic hyperplasia with lower urinary tract symptoms; R35.1 Nocturia; G47.00 Insomnia, unspecified

== ENCOUNTER → 2025-09-10 14:32 | Outpatient (BNVA) | payer MEDICARE, SELFPAY | PROVIDERS: PCP Internal Medicine; Visit Provider Internal Medicine | DX: E78.2 Mixed hyperlipidemia (principal); E11.9 Type 2 diabetes mellitus without complications; R79.89 Other specified abnormal findings of blood chemistry; J44.9 Chronic obstructive pulmonary disease, unspecified; M51.16 Intervertebral disc disorders with radiculopathy, lumbar region; K21.9 Gastro-esophageal reflux disease without esophagitis; N52.9 Male erectile dysfunction, unspecified; N40.1 Benign prostatic hyperplasia with lower urinary tract symptoms; R35.1 Nocturia; G47.00 Insomnia, unspecified; E66.9 Obesity, unspecified; Z68.33 Body mass index [BMI] 33.0-33.9, adult | CPT/HCPCS: 96127; 99212 ==

== ENCOUNTER 2025-09-28 12:28 | Outpatient (AMB) | payer MEDICARE, SELFPAY ==
--- NOTE | 2025-09-28 12:31 | MHC.OFFVIS ---
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 Allergies No Known Allergies Allergy (Verified 09/10/25 15:19) Medication List - Last Reconciled 09/28/25 by Steve Mullen MD Advair HFA 115-21 mcg/actuation (fluticasone propion-salmeterol) 1 puff inhalation BID NS albuterol sulfate 90 mcg/actuation 2 puffs inhalation Q6H PRN amlodipine 2.5 mg PO BID aspirin 81 mg PO DAILY atorvastatin 40 mg PO DAILY benzonatate 100 mg PO TID budesonide-formoterol 160-4.5 mcg/actuation (Symbicort) 1 inh inhalation BID cetirizine 10 mg PO DAILY dextromethorphan polistirex ER (Delsym 12 hour) 10 mL PO Q12H PRN fluocinolone acetonide oil 0.01% 5 drps otic (ear) left BID PRN 7 days lidocaine 5% 1 patch topical DAILY omeprazole 20 mg PO DAILY sildenafil 50 mg PO DAILY PRN 30 days tamsulosin 0.4 mg PO BEDTIME 90 days tramadol 50 mg PO TID PRN trazodone 50 mg PO BEDTIME PRN 90 days triamcinolone acetonide 0.1% 1 appl topical BID PRN HPI Comments Details: Jah comes for his yearly follow-up. He said he has been having recently more precordial chest tightness especially under stressful situations. 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 He does not have any exertional chest tightness although he said he can not exercise much due to his back issues. He had complains of exertional shortness of breath when climbing a flight of stairs. Taking all his medications. Last LDL was well optimized. Denies any orthopnea, PND, leg edema. No lightheadedness, syncope. Denies any palpitations prolonged irregular heartbeat. COUNTS INCLUDE 234 BEDS AT THE [facility] Medical History Diabetes mellitus COPD (chronic obstructive pulmonary disease) Lumbar disc herniation with radiculopathy Impaired fasting glucose Obesity (BMI 30-39.9) Pure hypercholesterolemia GERD without esophagitis Insomnia Hyperlipidemia Surgical History Hx of decompressive lumbar laminectomy S/P cardiac catheterization (~06/26/22) History of neck surgery History of colonoscopy History of thumb surgery History of left knee surgery Family History Father Colon cancer Mother Heart failure Brother Lung cancer Prostate cancer Brother Stroke Brother In good health Daughter In good health Social History Housing: Apartment Alcohol intake: former Patient Tobacco Use Status: Former Tobacco user Tobacco use type: Cigarette Years Smoked: stopped 23 years ago e-Cigarette/Vaping Use: Never Used Second Hand Smoke Exposure: Yes service: No Current occupational status: employed Cognitive needs: No Hearing needs: No Vision needs: Yes (glasses) Review of Systems Const Denies chills, Denies fatigue, Denies fever(s), Denies frequent falls, Denies weakness, Denies weight gain and Denies weight loss ENT Denies dizziness Card Denies chest pain, Denies leg edema, Denies lightheadedness, Denies palpitations, Denies dyspnea, Denies dyspnea on exertion, Denies orthopnea and Denies other (loss of consciousness) Resp Denies cough, Denies dyspnea and Denies dyspnea on exertion GI Denies hematochezia and Denies change in stool character Musc Denies abnormal gait, Denies muscle weakness, Denies numbness, Denies radiating pain into limb and Denies tingling Neuro Denies Abnormal speech present, Denies abnormal gait, Denies dizziness, Denies frequent falls, Denies numbness, Denies tingling and Denies weakness Endo Denies fatigue and Denies palpitations Physical Exam Vital Signs: Last Vital Signs Pulse 69 09/28/25 12:32 BP 110/76 09/28/25 12:32 BMI result Body Mass Index 33.4 Const General: cooperative, comfortable, no acute distress, well developed, alert and awake Nutritional Appearance: overweight Orientation/consciousness: patient oriented x3 Limitations: no limitations Neck Neck: Yes trachea midline, Yes supple and Yes no JVD Chest Chest palpation & inspection: normal inspection of the chest Resp Effort & Inspection: normal respiratory effort Auscultation: clear to auscultation bilaterally Cardio Jugular venous distension: no JVD Palpation: normal PMI Rate: regular rate Rhythm: abnormal rhythm with ectopic beats Heart sounds: S1 normal heart sound present, S2 normal heart sound present, no click, no gallops, no murmurs and no rubs Bruits: no carotid bruits Neuro General: patient oriented x3 and no focal motor deficits Speech: No Abnormal speech present Psych Appearance: grossly normal Office Procedures EKG Details: EKGs shows normal sinus rhythm with first-degree AV block with PVCs with left axis deviation [id number], Complete Assessment & Plan Assessment & Plan (1) CAD (coronary artery disease): Code(s): I25.10 - Atherosclerotic heart disease of [place] coronary artery without angina pectoris Category: Medical Plan: Nonobstructive coronary artery disease with cardiac catheterization few years ago although having recurrent symptoms of stress-induced precordial chest tightness. Need to rule out progressive CAD although less likely. Would suggest a vasodilating myocardial perfusion imaging as he can not exercise on treadmill. Continue aggressive medical therapy. Continue low-dose aspirin therapy for life. Continue high-intensity statin therapy with well optimized LDL is 60 mg/dL. Encouraged to participate in weight loss program. (2) HTN (hypertension): Code(s): I10 - Essential (primary) hypertension Category: Medical Plan: Hypertension which is currently well optimized advised to monitor blood pressure at home maintain a log. Goal blood pressure less than 130/84. Low-salt diet was advised. Stress mitigation strategies were discussed. Will follow up in the clinic in 1 year's time, sooner PRN. Thank you for allowing me to partake in his care Orders: Orders CA lexiscan stress w margaret Today I25.10 - Atherosclerotic heart disease of [place] coronary artery without angina pectoris Coding Level of Care Code Est Pt Level 4 (33961) Diagnoses CAD (coronary artery disease) I25.10 HTN (hypertension) I10 CPT Codes EKG - CPT: 09930-[id number], Complete ([id number])
[2025-09-28 12:32] VITALS: BP 110/76; PULSE 69; BMI 33.4
== END 2025-09-28 13:02 | disposition home or self-care (01) ==
LOC: HO.HCS 12:28
PROVIDERS: PCP Internal Medicine; Visit Provider Internal Medicine Cardiovascular Disease
DX: I25.10 Atherosclerotic heart disease of native coronary artery without angina pectoris (principal); I10 Essential (primary) hypertension
CPT/HCPCS: 93010; 99214

== ENCOUNTER → 2025-09-28 12:28 | Outpatient (BNVA) | payer MEDICARE, SELFPAY | PROVIDERS: PCP Internal Medicine; Visit Provider Internal Medicine Cardiovascular Disease | DX: I25.10 Atherosclerotic heart disease of native coronary artery without angina pectoris (principal); I10 Essential (primary) hypertension; Z79.82 Long term (current) use of aspirin; Z87.891 Personal history of nicotine dependence; Z98.61 Coronary angioplasty status | CPT/HCPCS: 93005; 99212 ==